=== PATIENT | female | born 1985 | race Caucasian/White ===

== ENCOUNTER 2017-01-14 18:38 | Emergency (ER) | payer BC ==
[2017-01-14 18:42] VITALS: BP 115/74
--- NOTE | 2017-01-14 20:54 | ED ---
Upper Extremity Pain - HPI Summary HPI Summary: 31 F presents with left foot pain for a week. pain is located on top of left foot. She states she has been wearing new shoes to the gym. The pain has moved from the the top of her foot to her 2nd and 3rd toe and up to her ankle. pain is greatest when pushes off while walking. she has not taken anything for the pain. - History of Current Complaint Chief Complaint: EDExtremityLower Stated Complaint: LEFT FOOT PAIN Time Seen by Provider: 01/14/17 19:36 Hx Last Menstrual Period: 04/05/15 - Allergies/Home Medications Allergies/Adverse Reactions: Allergies Allergy/AdvReac Type Severity Reaction Status Date / Time Latex Allergy Intermediate Blisters Verified 09/07/16 07:04 Penicillins [PCN] Allergy Mild Hives Verified 09/07/16 07:04 Ibuprofen AdvReac Mild See Comment Verified 09/07/16 07:04 PMH/Surg Hx/FS Hx/Imm Hx Endocrine/Hematology History: Denies: Hx Anticoagulant Therapy, Hx Diabetes, Hx Thyroid Disease Cardiovascular History: Denies: Hx Hypertension, Hx Pacemaker/ICD Respiratory History: Denies: Hx Asthma, Hx Chronic Obstructive Pulmonary Disease (COPD) GI History: Reports: Hx Crohn's Disease, Other GI Disorders - enlarged liver, crohns, GERD History: Denies: Hx Renal Disease Sensory History: Denies: Hx Hearing Aid Neurological History: Reports: Hx Migraine, Hx Seizures Denies: Hx Dementia Psychiatric History: Reports: Hx Panic Disorder Denies: Hx Substance Abuse - Surgical History Surgery Procedure, Year, and Place: TUBAL LIGATION. tonsilectomy. 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 Oral Surgery. crohns - Immunization History Date of Influenza Vaccine: mo Infectious Disease History: Denies: Hx Clostridium Difficile, Hx Hepatitis, Hx Human Immunodeficiency Virus (HIV), Hx of Known/Suspected MRSA, Hx Shingles, Hx Tuberculosis, Hx Known/ Suspected VRE, Hx Known/Suspected VRSA, History Other Infectious Disease, Traveled Outside the [place] in Last 30 Days - Family History Known Family History: Positive: None, Diabetes - grandmother Family History: FHx of blood clots - grandmother. FHx of breast CA - mother, grandmother - Social History Alcohol Use: Occasionally Substance Use Type: Reports: None Smoking Status (MU): Current Every Day Smoker Type: Cigarettes Amount Used/How Often: 2 cig. /day Length of Time of Smoking/Using Tobacco: 8 years Have You Smoked in the Last Year: Yes Review of Systems Negative: Fever Negative: Chest Pain Negative: Shortness Of Breath Positive: Myalgia - left foot pain All Other Systems Reviewed And Are Negative: Yes Physical Exam Triage Information Reviewed: Yes Vital Signs On Initial Exam: Initial Vitals Temp Pulse Resp BP Pulse Ox 97.3 F 86 20 115/74 100 01/14/17 18:40 01/14/17 18:40 01/14/17 18:40 01/14/17 18:40 01/14/17 18:40 Vital Signs Reviewed: Yes Appearance: Positive: Well-Appearing Skin: Positive: Warm, Dry Head/Face: Positive: Normal Head/Face Inspection Eyes: Positive: Normal, Conjunctiva Clear Respiratory/Lung Sounds: Positive: Clear to Auscultation, Breath Sounds Present Cardiovascular: Positive: Normal, RRR Musculoskeletal: Positive: Strength/ROM Intact - of left foot, Other - good pulses, capillary refill <2 secs, sensation grossly intact. pain noted along extensor digitorium tendons of foot Diagnostics - Vital Signs Vital Signs Temp Pulse Resp BP Pulse Ox 01/14/17 18:40 97.3 F 86 20 115/74 100 - Laboratory Lab Statement: Any lab studies that have been ordered have been reviewed, and results considered in the medical decision making process. - Radiology foot Xray Interpretation: No Acute Changes Radiology Interpretation Completed By: Radiologist Course/Dx - Course Course Of Treatment: 31F presents with gradual onset of left foot pain that is located on dorsum of foot from ankle due to 2nd and 3rd toe. worst with walking. on exam pain noted along extensor digitorium tendons of foot. xray normal. will treat as extensor tendonitis. told to use orthodotics that has and treat conservatively. patient understands and agrees with plan - Diagnoses Differential Diagnosis/HQI/PQRI: Positive: Fracture (Closed), Strain, Sprain Provider Diagnoses: Left foot pain Discharge - Discharge Plan Condition: Good Disposition: HOME Patient Education Materials: Tendinitis (ED) Referrals: Dalton Warner MD [Primary Care Provider] - Additional Instructions: Likely have extensor tendonitis Keep laces loose Rest, ice, elevate Can massage area Stretch calf muscles Take ibuprofen for pain every 6 hours Follow up with primary within 5 days Return to ED if develop any new or worsening symptoms
--- NOTE | 2017-01-14 21:08 | RAD ---
Indication: Left foot pain. 3 views left foot demonstrates no fracture. No other bone or joint abnormality is noted. IMPRESSION: No fracture of the left foot is noted.
== END 2017-01-14 21:30 | disposition home or self-care (01) ==
LOC: ED 18:38
DX: M79.672 Pain in left foot (principal); F17.210 Nicotine dependence, cigarettes, uncomplicated
CPT/HCPCS: 99281

== ENCOUNTER 2017-01-31 18:01 | Emergency (ER) | payer BC ==
[2017-01-31] MEDS ORDERED: Ondansetron INJ* 2 MG/ML VIAL IV ONE (23:13)
[2017-01-31] MEDS ORDERED: NS 0.9% 1000 ML* 1,000 ML IV ONE (23:13)
--- NOTE | 2017-01-31 23:44 | ED ---
Harsha Vargas Matthew, scribed for Dontrell Guerra MD on 01/31/17 at 2327 . Abdominal Pain/Female - HPI Summary HPI Summary: A 31 y/o female presents to the ED with RLQ abdominal pain since yesterday, which worsened at 17:00 today. The pain is described as sharp and radiates through to the back.. Associated symptoms include diarrhea - since yesterday, vomiting - 3x today; started yesterday, headache, and bilateral leg pain. Hx of crohn's disease and hasn't had issues lately. She hasn't eaten anything unusual. - History of Current Complaint Chief Complaint: EDAbdPain Stated Complaint: HEADACHE,BACK AND ABD PAIN,WEAKNESS Time Seen by Provider: 01/31/17 23:08 Hx Obtained From: Patient Hx Last Menstrual Period: 04/05/15 ?: No Onset/Duration: Gradual Onset, Lasting Days, Still Present Timing: Constant Severity Initially: Moderate Severity Currently: Moderate Pain Intensity: 8 Pain Scale Used: 0-10 Numeric Location: Discrete At: RLQ Radiates: Yes Radiates to: Back Character: Sharp Associated Signs and Symptoms: Positive: Back Pain, Nausea, Vomiting, Diarrhea, Other: - bilateral leg pain Allergies/Adverse Reactions: Allergies Allergy/AdvReac Type Severity Reaction Status Date / Time Latex Allergy Intermediate Blisters Verified 09/07/16 07:04 Penicillins [PCN] Allergy Mild Hives Verified 09/07/16 07:04 Ibuprofen AdvReac Mild See Comment Verified 09/07/16 07:04 PMH/Surg Hx/FS Hx/Imm Hx Endocrine/Hematology History: Denies: Hx Anticoagulant Therapy, Hx Diabetes, Hx Thyroid Disease Cardiovascular History: Denies: Hx Hypertension, Hx Pacemaker/ICD Respiratory History: Denies: Hx Asthma, Hx Chronic Obstructive Pulmonary Disease (COPD) GI History: Reports: Hx Crohn's Disease, Other GI Disorders - enlarged liver, crohns, GERD History: Denies: Hx Renal Disease Sensory History: Denies: Hx Hearing Aid Neurological History: Reports: Hx Migraine, Hx Seizures Denies: Hx Dementia Psychiatric History: Reports: Hx Panic Disorder Denies: Hx Substance Abuse - Surgical History Surgery Procedure, Year, and Place: TUBAL LIGATION. tonsilectomy. 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 Oral Surgery. crohns - Immunization History Date of Influenza Vaccine: mo Infectious Disease History: No Infectious Disease History: Denies: Hx Clostridium Difficile, Hx Hepatitis, Hx Human Immunodeficiency Virus (HIV), Hx of Known/Suspected MRSA, Hx Shingles, Hx Tuberculosis, Hx Known/ Suspected VRE, Hx Known/Suspected VRSA, History Other Infectious Disease, Traveled Outside the [place] in Last 30 Days - Family History Known Family History: Positive: Diabetes - grandmother Family History: FHx of blood clots - grandmother. FHx of breast CA - mother, grandmother - Social History Alcohol Use: Occasionally Substance Use Type: Reports: None Smoking Status (MU): Current Every Day Smoker Type: Cigarettes Amount Used/How Often: 2 cig. /day Length of Time of Smoking/Using Tobacco: 8 years Have You Smoked in the Last Year: Yes Review of Systems Constitutional: Negative Eyes: Negative ENT: Negative Cardiovascular: Negative Respiratory: Negative Positive: Abdominal Pain - RLQ, Vomiting, Diarrhea, Nausea Genitourinary: Negative Positive: Myalgia - back pain, bilateral leg pain Skin: Negative Neurological: Negative Psychological: Normal All Other Systems Reviewed And Are Negative: Yes Physical Exam Triage Information Reviewed: Yes Vital Signs On Initial Exam: Initial Vitals Temp Pulse Resp BP Pulse Ox 98.5 F 97 18 106/64 98 01/31/17 18:06 01/31/17 18:06 01/31/17 18:06 01/31/17 18:06 01/31/17 18:06 Vital Signs Reviewed: Yes Appearance: Positive: Well-Appearing, No Pain Distress Skin: Positive: Warm Head/Face: Positive: Normal Head/Face Inspection Eyes: Positive: DELORIS ENT: Positive: Hearing grossly normal Neck: Positive: Supple Respiratory/Lung Sounds: Positive: Clear to Auscultation, Breath Sounds Present Cardiovascular: Positive: RRR Abdomen Description: Positive: Nontender, No Organomegaly, Soft Bowel Sounds: Positive: Present Musculoskeletal: Positive: Strength/ROM Intact Neurological: Positive: Sensory/Motor Intact, Alert, Oriented to Person Place, Time Psychiatric: Positive: Affect/Mood Appropriate Diagnostics - Vital Signs Vital Signs Temp Pulse Resp BP Pulse Ox 01/31/17 20:06 99.1 F 90 16 107/66 99 01/31/17 18:06 98.5 F 97 18 106/64 98 - Laboratory Result Diagrams: 01/31/17 23:50 01/31/17 23:50 Lab Statement: Any lab studies that have been ordered have been reviewed, and results considered in the medical decision making process. Re-Evaluation - Re-Evaluation First Eval Change: Improved Abdominal Pain Fem Course/Dx - Course Course Of Treatment: A 31 y/o female presents to the ED with RLQ abdominal pain since yesterday, which worsened at 17:00 today. The pain is described as sharp and radiates through to the back.. Associated symptoms include diarrhea - since yesterday, vomiting - 3x today; started yesterday, headache, and bilateral leg pain. Labs were reviewed and shows WBC of 11.9. In the ED course, the patient was given IV fluids and Zofran. She improved while in the ED and will be discharged home with PCP follow-up. - Diagnoses Provider Diagnoses: Vomiting Discharge - Discharge Plan Condition: Stable Disposition: HOME Patient Education Materials: Acute Nausea and Vomiting (ED) Referrals: Dalton Warner MD [Primary Care Provider] - 3 Days Additional Instructions: Please follow-up with your primary care physician in 3 days. Please eat a bland diet. The documentation as recorded by the Harsha ni Matthew accurately reflects the service I personally performed and the decisions made by me, Dontrell Guerra MD.
[2017-02-01 00:09] LABS: Hematocrit 42 % (35-47); Mean Corpuscular HGB Conc 34 g/dl (31-36); Mean Corpuscular Hemoglobin 29 pg (27-31); Mean Corpuscular Volume 87 fL (80-97); Mean Platelet Volume 8 um3 (7.4-10.4); Red Blood Count 4.79 10^6/ul (4.0-5.4); Red Cell Distribution Width 13 % (10.5-15); White Blood Count 11.9 10^3/ul (3.5-10.8)
[2017-02-01 00:24] LABS: Albumin 4.3 g/dL (3.2-5.2); BUN/Creatinine Ratio 18.1 (8-20); C Reactive Protein 3.08 mg/L (< 5.00); Calcium 9.3 mg/dL (8.6-10.3); EGFR African American 123.2 (>60); EGFR Non-African American 95.8 (>60); Potassium 3.5 mmol/L (3.5-5.0); Total Bilirubin 0.8 mg/dL (0.2-1.0); Total Protein 7.3 g/dL (6.4-8.9)
[2017-02-01 03:09] VITALS: BP 96/67
== END 2017-02-01 03:10 | disposition home or self-care (01) ==
LOC: ED 18:01
DX: R11.10 Vomiting, unspecified (principal); Z88.0 Allergy status to penicillin; F17.210 Nicotine dependence, cigarettes, uncomplicated
CPT/HCPCS: 36415; 80053; 83605; 83690; 83735; 85025; 86140; 96360; 96374; 99283; J2405

== ENCOUNTER 2017-06-24 21:08 | Emergency (ER) | payer BC, OTHER ==
[2017-06-24 21:18] VITALS: BP 114/69
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
== END 2017-06-24 21:45 | disposition home or self-care (01) ==
LOC: UCEAST 21:08
DX: S16.1XXA Strain of muscle, fascia and tendon at neck level, initial encounter (principal); V49.60XA Unspecified car occupant injured in collision with unspecified motor vehicles in traffic accident, initial encounter; Y93.89 Activity, other specified; Y92.410 Unspecified street and highway as the place of occurrence of the external cause; M25.519 Pain in unspecified shoulder; M62.830 Muscle spasm of back; Z88.0 Allergy status to penicillin; Z88.6 Allergy status to analgesic agent; Z91.040 Latex allergy status; F17.210 Nicotine dependence, cigarettes, uncomplicated
CPT/HCPCS: 99213; G0463

== ENCOUNTER 2017-09-01 17:22 | Emergency (ER) | payer BC, OTHER ==
[2017-09-01] MEDS ORDERED: oxyCODONE/Acetamin 5/325 MG* TAB PO ONE (17:53)
--- NOTE | 2017-09-01 18:27 | ED ---
Upper Extremity Pain - HPI Summary HPI Summary: 31F presents with left wrist pain since last night. She twisted her wrist over her head. She states she felt a pop. She has pain that is on the radial aspect of her left wrist. She has had issues with this wrist before but pain has never been this intense. No previous injury to the area. She admits to some tingling in her thumb and index finger. She states pain is 10/10. She has been taking tyenlol for her pain. She is right handed. 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 She has PMH of crohns. - History of Current Complaint Chief Complaint: EDExtremityUpper Stated Complaint: LT WRIST INJURY Time Seen by Provider: 09/01/17 17:33 Hx Last Menstrual Period: 06/19/17 - Allergies/Home Medications Allergies/Adverse Reactions: Allergies Allergy/AdvReac Type Severity Reaction Status Date / Time Latex Allergy Intermediate Blisters Verified 06/24/17 21:18 Penicillins [PCN] Allergy Mild Hives Verified 06/24/17 21:18 Ibuprofen AdvReac Mild See Comment Verified 06/24/17 21:18 PMH/Surg Hx/FS Hx/Imm Hx Endocrine/Hematology History: Denies: Hx Anticoagulant Therapy, Hx Diabetes, Hx Thyroid Disease Cardiovascular History: Denies: Hx Hypertension, Hx Pacemaker/ICD Respiratory History: Denies: Hx Asthma, Hx Chronic Obstructive Pulmonary Disease (COPD) GI History: Reports: Hx Crohn's Disease, Other GI Disorders - enlarged liver, crohns, GERD History: Denies: Hx Renal Disease Sensory History: Denies: Hx Hearing Aid Neurological History: Reports: Hx Migraine, Hx Seizures Denies: Hx Dementia Psychiatric History: Reports: Hx Panic Disorder Denies: Hx Substance Abuse - Surgical History Surgery Procedure, Year, and Place: TUBAL LIGATION. tonsilectomy. 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 Oral Surgery. crohns - Immunization History Date of Influenza Vaccine: mo Infectious Disease History: No Infectious Disease History: Denies: Hx Clostridium Difficile, Hx Hepatitis, Hx Human Immunodeficiency Virus (HIV), Hx of Known/Suspected MRSA, Hx Shingles, Hx Tuberculosis, Hx Known/ Suspected VRE, Hx Known/Suspected VRSA, History Other Infectious Disease, Traveled Outside the [place] in Last 30 Days - Family History Known Family History: Positive: None, Diabetes - grandmother Family History: FHx of blood clots - grandmother. FHx of breast CA - mother, grandmother - Social History Alcohol Use: Rare Alcohol Amount: holidays only Substance Use Type: Reports: None Smoking Status (MU): Light Every Day Tobacco Smoker Type: Cigarettes Amount Used/How Often: 2 cig. /day Length of Time of Smoking/Using Tobacco: 8 years Have You Smoked in the Last Year: Yes Review of Systems Negative: Fever Negative: Chest Pain Negative: Shortness Of Breath Positive: Myalgia - left wrist pain All Other Systems Reviewed And Are Negative: Yes Physical Exam Triage Information Reviewed: Yes Vital Signs On Initial Exam: Initial Vitals Temp Pulse Resp BP Pulse Ox 98 F 90 18 123/85 97 09/01/17 17:30 09/01/17 17:30 09/01/17 17:30 09/01/17 17:30 09/01/17 17:30 Vital Signs Reviewed: Yes Appearance: Positive: Well-Appearing Skin: Positive: Warm, Dry Head/Face: Positive: Normal Head/Face Inspection Eyes: Positive: Normal, Conjunctiva Clear Respiratory/Lung Sounds: Positive: Clear to Auscultation, Breath Sounds Present Cardiovascular: Positive: Normal, RRR Musculoskeletal: Positive: Strength/ROM Intact - fingers with pain, Limited @ - left wrist, Other - tender over radial aspect of wrist, good pulses, capillary refill<2 secs, no deformity, neg snuff box tenderness, will not perform frankstein test due to pain. Negative: Edema Left Neurological: Positive: Normal Psychiatric: Positive: Normal Diagnostics - Vital Signs Vital Signs Temp Pulse Resp BP Pulse Ox 09/01/17 18:04 18 09/01/17 17:30 98 F 90 18 123/85 97 - Laboratory Lab Statement: Any lab studies that have been ordered have been reviewed, and results considered in the medical decision making process. - Radiology wrist Xray Interpretation: No Acute Changes - IMPRESSION: Normal radiograph of the left wrist. If the patient's symptoms persist, follow-up imaging is recommended. Radiology Interpretation Completed By: Radiologist Course/Dx - Course Course Of Treatment: 31F presents with left wrist pain since last night. She twisted her wrist over her head. She states she felt a pop. She has pain that is on the radial aspect of her left wrist. She has had issues with this wrist before but pain has never been this intense. No previous injury to the area. She admits to some tingling in her thumb and index finger. She states pain is 10/10. She has been taking tyenlol for her pain. She is right handed. on exam has tenderness over radial aspect of dorsum of wrist. has ROM of finger. neg snuff box tenderness. neurovascular intact. xray read as normal. will give thumb spica splint for splint. could be de quervain. will give ortho referral if no improvement with 2 weeks of conservative therapy. patient understand and agrees with plan. - Diagnoses Differential Diagnosis/HQI/PQRI: Positive: Fracture (Closed), Strain, Sprain Provider Diagnoses: Left wrist injury Discharge - Discharge Plan Condition: Good Disposition: HOME Patient Education Materials: Wrist Injury (ED) Referrals: Dalton Warner MD [Primary Care Provider] - Cam Cummings MD [Medical Doctor] - Additional Instructions: Take Tylenol every 6 hours as needed for pain Apply ice, rest, elevate keep in splint Follow up with primary care physician or ortho if no improvement Return to ED if develop any new or worsening symptoms
--- NOTE | 2017-09-01 18:38 | RAD ---
INDICATION: Pain and swelling at the left wrist COMPARISON: None. TECHNIQUE: 3 views left wrist. REPORT: The visualized bones are properly aligned and well corticated. The joint spaces are normal.There is no fracture, dislocation or other focal osseous abnormality. IMPRESSION: Normal radiograph of the left wrist. If the patient's symptoms persist, follow-up imaging is recommended.
[2017-09-01 19:20] VITALS: BP 106/65
== END 2017-09-01 19:16 | disposition home or self-care (01) ==
LOC: ED 17:22
DX: S69.92XA Unspecified injury of left wrist, hand and finger(s), initial encounter (principal); M25.532 Pain in left wrist; F17.210 Nicotine dependence, cigarettes, uncomplicated; X50.9XXA Other and unspecified overexertion or strenuous movements or postures, initial encounter; Y93.9 Activity, unspecified; Y92.9 Unspecified place or not applicable
CPT/HCPCS: 99282; A9270-GY

== ENCOUNTER 2017-10-26 17:58 | Emergency (ER) | payer BC ==
[2017-10-26] MEDS ORDERED: NS 0.9% 1000 ML*IV.FLUID IV ONE (19:41)
[2017-10-26] MEDS ORDERED: Levofloxacin 750 MG IVPREMIX(* 750 MG/150 ML BAG IVPB ONE (19:43)
[2017-10-26] MEDS ORDERED: HYDROmorphone INJ* 2 MG/ML CARPUJECT SYRINGE IV SLOW PU ONE (19:44)
[2017-10-26] MEDS ORDERED: Metoclopramide IV* 5 MG/ML 2 ML VIAL IV SLOW PU ONE (19:44)
[2017-10-26] MEDS ORDERED: metroNIDAZOLE IV 500 MG/100ML* 500 MG/100 ML BAG IVPB ONE (19:44)
[2017-10-26 20:48] LABS: ABS Basophils 0.1 10^3/ul (0-0.2); ABS Eosinophils 0.2 10^3/ul (0-0.6); ABS Lymphocytes 3.9 10^3/ul (1.0-4.8); ABS Monocytes 0.8 10^3/ul (0-0.8); ABS Neutrophils 9.1 10^3/ul (1.5-7.7); ABS Nucleated RBC 0 10^3/ul; Eosinophil % 1.2 % (0-6); Hematocrit 40 % (35-47); Hemoglobin 13.3 g/dl (12.0-16.0); Lymphocyte % 27.7 % (25-47); Mean Corpuscular HGB Conc 34 g/dl (31-36); Mean Corpuscular Hemoglobin 30 pg (27-31); Mean Corpuscular Volume 88 fL (80-97); Mean Platelet Volume 8 um3 (7.4-10.4); Nucleated Red Blood Cells % 0.1; Platelet Count 360 10^3/ul (150-450); Red Blood Count 4.48 10^6/ul (4.0-5.4); Red Cell Distribution Width 13 % (10.5-15); White Blood Count 14.1 10^3/ul (3.5-10.8)
[2017-10-26 20:59] LABS: EGFR Non-African American 105.2 (>60)
[2017-10-26 21:03] LABS: INR 0.95 (0.77-1.02)
[2017-10-26] MEDS ORDERED: Iohexol 300* (CONTRAST) 10 ML SDV IV ONE (21:31)
[2017-10-26 21:39] LABS: Urine Appearance Cloudy; Urine Blood Negative (Negative); Urine Color Yellow; Urine Ketones Negative (Negative); Urine Protein Negative (Negative); Urine Specific Gravity 1.021 (1.010-1.030); Urine Urobilinogen Negative (Negative)
--- NOTE | 2017-10-27 00:12 | ED ---
Placido Vargas Nikita, scribed for Blayne Madrigal MD on 10/26/17 at 1939 . Complex/Multi-Sys Presentation - HPI Summary HPI Summary: This patient is a 32 year old F BIBA to ED with a chief complaint of dizziness and confusion since 2 days ago. The CC is described as sharp and has worsened today. The patient rates the pain 8/10 in severity. Symptoms aggravated by nothing. Symptoms alleviated by nothing. Patient reports abdominal pain ( radiating to the back), N/V/D (x1 week), fever and chills (x3 days), and bloody red stool (couple of months). Pt was given Zofran [employer]. Pt believes it is a flare up of Crohns (first time in 3 years). - History Of Current Complaint Chief Complaint: EDAbdPain Time Seen by Provider: 10/26/17 19:28 Hx Obtained From: Patient Onset/Duration: Sudden Onset, Lasting Days, Lasting Weeks, Still Present, Worse Since - today Timing: Constant, Days, Weeks Severity Currently: Severe Severity Initially: Severe Location: Radiates To: - abdominal pain radiates to the back Character: Sharp Aggravating Factor(s): nothing Alleviating Factor(s): nothing Associated Signs And Symptoms: Positive: Other - Patient reports abdominal pain (radiating to the back), N/V/D (x1 week), fever and chills (x3 days), bloody red stool (couple of months), and dizziness and confusion (x2 days ago). - Allergies/Home Medications Allergies/Adverse Reactions: Allergies Allergy/AdvReac Type Severity Reaction Status Date / Time Latex Allergy Intermediate Blisters Verified 10/26/17 18:51 Penicillins [PCN] Allergy Mild Hives Verified 10/26/17 18:51 Ibuprofen AdvReac Mild See Comment Verified 10/26/17 18:51 Home Medications: Home Medications FLUoxetine CAP* [Prozac CAP*] 20 mg PO BID 10/26/17 [History Confirmed 10/26/17] PMH/Surg Hx/FS Hx/Imm Hx Endocrine/Hematology History: Denies: Hx Anticoagulant Therapy, Hx Diabetes, Hx Thyroid Disease Cardiovascular History: Denies: Hx Hypertension, Hx Pacemaker/ICD Respiratory History: Denies: Hx Asthma, Hx Chronic Obstructive Pulmonary Disease (COPD) GI History: Reports: Hx Crohn's Disease, Other GI Disorders - enlarged liver, crohns, GERD History: Denies: Hx Renal Disease Sensory History: Denies: Hx Hearing Aid Neurological History: Reports: Hx Migraine, Hx Seizures Denies: Hx Dementia Psychiatric History: Reports: Hx Panic Disorder Denies: Hx Substance Abuse - Surgical History Surgery Procedure, Year, and Place: TUBAL LIGATION. tonsilectomy. 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 Oral Surgery. crohns - Immunization History Date of Influenza Vaccine: mo Infectious Disease History: No Infectious Disease History: Denies: Hx Clostridium Difficile, Hx Hepatitis, Hx Human Immunodeficiency Virus (HIV), Hx of Known/Suspected MRSA, Hx Shingles, Hx Tuberculosis, Hx Known/ Suspected VRE, Hx Known/Suspected VRSA, History Other Infectious Disease, Traveled Outside the [place] in Last 30 Days - Family History Known Family History: Positive: Diabetes - grandmother Family History: FHx of blood clots - grandmother. FHx of breast CA - mother, grandmother - Social History Alcohol Use: Rare Alcohol Amount: holidays only and her Birthday on [birth year] Substance Use Type: Reports: None Smoking Status (MU): Light Every Day Tobacco Smoker Type: Cigarettes Amount Used/How Often: 2 cig. /day Length of Time of Smoking/Using Tobacco: 8 years Have You Smoked in the Last Year: Yes Review of Systems Positive: Fever, Chills Positive: Abdominal Pain - radiating to the back, Vomiting, Diarrhea, Nausea, Other - bloody red stool Neurological: Other - dizziness and confusion All Other Systems Reviewed And Are Negative: Yes Physical Exam - Summary Physical Exam Summary: VITAL SIGNS: Reviewed. GENERAL: ~Patient is a well-developed and nourished FEMALE who is lying comfortable in the stretcher. Patient is not in any acute respiratory distress. HEAD AND FACE: No signs of trauma. No ecchymosis, hematomas or skull depressions. No sinus tenderness. EYES: PERRLA, EOMI x 2, No injected conjunctiva, no nystagmus. EARS: Hearing grossly intact. Ear canals and tympanic membranes are within normal limits. MOUTH: Oropharynx within normal limits. NECK: Supple, trachea is midline, no adenopathy, no JVD, no carotid bruit, no c- spine tenderness, neck with full ROM. CHEST: Symmetric, no tenderness at palpation LUNGS: Clear to auscultation bilaterally. No wheezing or crackles. CVS: Regular rate and rhythm, S1 and S2 present, no murmurs or gallops appreciated. ABDOMEN: Soft. Diffuse abdominal tenderness, more over the LLQ. No signs of distention. No rebound no guarding, and no masses palpated. Bowel sounds are normal. EXTREMITIES: FROM in all major joints, no edema, no cyanosis or clubbing. NEURO: Alert and oriented x 3. No acute neurological deficits. Speech is normal and follows commands. SKIN: Dry and warm Triage Information Reviewed: Yes Vital Signs On Initial Exam: Initial Vitals Temp Pulse Resp BP Pulse Ox 98.7 F 77 16 103/64 99 10/26/17 18:34 10/26/17 18:34 10/26/17 18:34 10/26/17 18:34 10/26/17 18:34 Vital Signs Reviewed: Yes Diagnostics - Vital Signs Vital Signs Temp Pulse Resp BP Pulse Ox 10/26/17 18:41 76 13 97 10/26/17 18:39 91/61 10/26/17 18:34 98.7 F 77 16 103/64 99 - Laboratory Result Diagrams: 10/26/17 20:25 10/26/17 20:25 Lab Statement: Any lab studies that have been ordered have been reviewed, and results considered in the medical decision making process. - CT abd/pel CT Interpretation Completed By: Radiologist - No acute findings. ED physician has reviewed this radiology report. Re-Evaluation - Re-Evaluation First Eval Re-Evaluation Time: 23:54 Comment: Discussed with pt about results. Discussed with pt about discharge plan. Complex Multi-Symp Course/Dx Assessment/Plan: This patient is a 32 year old F BIBA to ED with a chief complaint of dizziness and confusion since 2 days ago. The CC is described as sharp and has worsened today. The patient rates the pain 8/10 in severity. Patient reports abdominal pain (radiating to the back), N/V/D (x1 week), fever and chills (x3 days), and bloody red stool (couple of months). CT abd/pel reveals no acute findings. Pt will be discharged. Pt is agreeable with this plan. - Diagnoses Differential Diagnoses/HQI/PQRI: Other - abdominal pain Provider Diagnoses: Abdominal pain Discharge - Discharge Plan Condition: Stable Disposition: HOME Patient Education Materials: Abdominal Pain (ED) Referrals: Dalton Warner MD [Primary Care Provider] - (Follow up with your PCP in 1-2 days.) Additional Instructions: RETURN TO EMERGENCY DEPARTMENT FOR ANY NEW OR WORSENING SYMPTOMS. The documentation as recorded by the Placido ni Nikita accurately reflects the service I personally performed and the decisions made by me, Blayne Madrigal MD.
[2017-10-27 00:18] VITALS: BP 94/64
--- NOTE | 2017-10-27 07:46 | RAD ---
CLINICAL HISTORY: Abdominal pain, history of Crohn's disease COMPARISON: May 23, 2015 TECHNIQUE: Multiple contiguous axial CT scans were obtained of the abdomen and pelvis after the administration of intravenous contrast. Coronal and sagittal multiplanar reformations are submitted for review. Oral contrast was administered. Delayed images were obtained through the abdomen and pelvis. FINDINGS: LUNG BASES: The lung bases are clear. LIVER: The liver is normal in shape, size, contour, and attenuation. BILE DUCTS: There is no intrahepatic or extrahepatic biliary dilatation. GALLBLADDER: The gallbladder is normal, without pericholecystic inflammatory change. PANCREAS: The pancreas is normal, without mass or ductal dilatation. SPLEEN: Normal in size and appearance. UPPER GI TRACT: Evaluation of the gastrointestinal tract is limited by incomplete gastric distention. The upper GI tract is unremarkable. SMALL BOWEL AND MESENTERY: The small bowel is normal in contour, course, and caliber. There is no obstruction or dilatation. COLON: There is mild mucosal thickening of the descending colon.. The appendix is not clearly visualized. There is no appreciable inflammatory change within the right lower quadrant. ADRENALS: Normal bilaterally. KIDNEYS: The kidneys are normal in shape, size, contour, and axis. There is no hydronephrosis or nephrolithiasis. BLADDER: The bladder is smooth in contour. PELVIC ORGANS: The uterus and adnexa are grossly normal for technique. AORTA: The aorta is normal. IVC: Unremarkable LYMPH NODES: There is no lymphadenopathy by size criteria. ABDOMINAL WALL: There is a small fat-containing umbilical hernia BONES AND SOFT TISSUES: There are mild diffuse degenerative changes. OTHER: None IMPRESSION: MILD MUCOSAL THICKENING OF THE DESCENDING COLON. THE DIFFERENTIAL INCLUDES COLITIS GIVEN THE HISTORY OF INFLAMMATORY BOWEL DISEASE; HOWEVER, THIS MAY BE AN ARTIFACT OF INCOMPLETE DISTENTION. OTHERWISE UNREMARKABLE CT OF THE ABDOMEN AND PELVIS.
== END 2017-10-27 00:18 | disposition home or self-care (01) ==
LOC: ED 17:58
DX: R10.9 Unspecified abdominal pain (principal); R42 Dizziness and giddiness; R41.0 Disorientation, unspecified; F17.210 Nicotine dependence, cigarettes, uncomplicated
CPT/HCPCS: 36415; 74177; 80053; 81003; 83605; 84484; 84702; 85025; 85610; 85730; 86140; 87040; 96374; 99283; J1170; J2765; J3490; Q9967

== ENCOUNTER 2018-04-27 18:11 | Emergency (ER) | payer BC ==
[2018-04-27] MEDS ORDERED: Morphine ORAL.SOLN 10 mg* 2 MG/ML UDC 5 ml PO ONE (19:48)
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
[2018-04-27 22:08] VITALS: BP 106/68
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
== END 2018-04-27 22:08 | disposition home or self-care (01) ==
LOC: ED 18:11
DX: S16.1XXA Strain of muscle, fascia and tendon at neck level, initial encounter (principal); W20.8XXA Other cause of strike by thrown, projected or falling object, initial encounter; Y93.89 Activity, other specified; Y92.410 Unspecified street and highway as the place of occurrence of the external cause; M25.559 Pain in unspecified hip; Z88.0 Allergy status to penicillin; Z88.6 Allergy status to analgesic agent; Z91.040 Latex allergy status; Z83.3 Family history of diabetes mellitus; Z83.2 Family history of diseases of the blood and blood-forming organs and certain disorders involving the immune mechanism; Z80.3 Family history of malignant neoplasm of breast; Z87.891 Personal history of nicotine dependence
CPT/HCPCS: 72125; 99282; A9270-GY

== ENCOUNTER 2018-11-23 09:51 | Emergency (ER) | payer BC | END 2018-11-23 11:00 | disposition left against medical advice (07) | LOC: UCEAST 09:51 | DX: Z53.21 Procedure and treatment not carried out due to patient leaving prior to being seen by health care provider (principal) ==

== ENCOUNTER → 2018-11-24 09:08 | Emergency (ER) | payer BC ==
[~2018-11-24 09:08] MED LIST: Butalb/Acetamin/Caff TAB* 1 TAB PO ONE; Iohexol 300* (CONTRAST) 10 ML SDV IV ONE; NS 0.9% 1000 ML** 1,000 ML IV ONE; Ondansetron INJ* 2 MG/ML VIAL IV ONE
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
[2018-11-24] MEDS: Ketorolac INJ* 30 MG/ML 1 ML VIAL IV PUSH ONE ×2 (10:21→11:49)
[2018-11-24 11:07] LABS: ABS Basophils 0.1 10^3/ul (0-0.2); ABS Eosinophils 0.2 10^3/ul (0-0.6); ABS Monocytes 0.6 10^3/ul (0-0.8); ABS Neutrophils 6.1 10^3/ul (1.5-7.7); ABS Nucleated RBC 0 10^3/ul; Eosinophil % 1.5 %; Hematocrit 45 % (35-47); Hemoglobin 15.6 g/dl (12.0-16.0); Lymphocyte % 30.5 %; Mean Corpuscular HGB Conc 34 g/dl (31-36); Mean Corpuscular Hemoglobin 31 pg (27-31); Mean Corpuscular Volume 91 fL (80-97); Mean Platelet Volume 8.4 fL (7.4-10.4); Nucleated Red Blood Cells % 0; Platelet Count 397 10^3/ul (150-450); Red Blood Count 4.97 10^6/ul (4.00-5.40); Red Cell Distribution Width 14 % (10.5-15)
[2018-11-24 11:25] LABS: ALT 12 U/L (7-52); AST 16 U/L (13-39); Albumin 4.4 g/dL (3.2-5.2); Albumin/Globulin Ratio 1.4 (1-3); Alkaline Phosphatase 43 U/L (34-104); Anion Gap 7 mmol/L (2-11); BUN/Creatinine Ratio 13.9 (8-20); Blood Urea Nitrogen 10 mg/dL (6-24); C Reactive Protein 3.28 mg/L (<8.01); CO2 Carbon Dioxide 23 mmol/L (22-32); Calcium 9.2 mg/dL (8.6-10.3); Chloride 108 mmol/L (101-111); EGFR African American 114.3 (>60); EGFR Non-African American 94.5 (>60); Globulin 3.2 g/dL (2-4); Glucose 83 mg/dL (70-100); Magnesium 2.2 mg/dL (1.9-2.7); Potassium 3.8 mmol/L (3.5-5.0); Sodium 138 mmol/L (135-145); Total Protein 7.6 g/dL (6.4-8.9)
[2018-11-24 11:30] LABS: Urine Appearance Clear; Urine Bilirubin Negative (Negative); Urine Blood Negative (Negative); Urine Color Straw; Urine Glucose Negative (Negative); Urine Ketones Negative (Negative); Urine Nitrite Negative (Negative); Urine Protein Negative (Negative); Urine Specific Gravity 1.005 (1.010-1.030); Urine Urobilinogen Negative (Negative)
[2018-11-24 11:30] LABS: HCG Pregnancy < 0.60 mIU/mL
[2018-11-24 12:08] VITALS: BP 109/74
== END | disposition home or self-care (01) ==
LOC: ED 09:08
DX: R51 Headache (principal); F17.210 Nicotine dependence, cigarettes, uncomplicated; K50.90 Crohn's disease, unspecified, without complications
CPT/HCPCS: 36415; 70450; 74177; 80053; 81003; 83605; 83690; 83735; 84702; 85025; 86140; 96361; 96374; 96375; 99282; A9270-GY; J1885; J2405; Q9967

== ENCOUNTER 2019-05-02 07:12 | Emergency (ER) | payer BC, OTHER ==
--- OUTSIDE RECORDS SUMMARY | 2019-05-02 07:24 | XMS REPORT | Continuity of Care Document ---
:1985 External Reference #:[id number] Author Name Selin Nascimento Care Team Providers Name Role Phone Dalton Warner MD Primary Care Physician Unavailable Payers Date Identification Numbers Payment Provider Subscriber Policy Number: [id number] BECKI Colbert Ruthie Cruz PayID: [id number] [address] [address] [place] [address] Effective: 2018 Policy Number: [id number] Leana Ruthie Cruz Onset: 2018 PayID: [id number] [address] [place] [address] Problems Active Problems Provider Date Gastroesophageal reflux disease Roldan Murrieta M.D. Onset: 08/31/2011 Asthma without status asthmaticus Roldan Murrieta M.D. Onset: 08/31/2011 Atypical depressive disorder Roldan Murrieta M.D. Onset: 08/31/2011 Tobacco user Roldan Murrieta M.D. Onset: 08/31/2011 Seizure Darrell Flannery M.D. Onset: 04/25/2015 Depressive disorder Darrell Flannery M.D. Onset: 04/25/2015 Anxiety Darrell Flannery M.D. Onset: 04/25/2015 Anemia Darrell Flannery M.D. Onset: 04/25/2015 Syncope and collapse Walt Rodney M.D. Onset: 04/09/2019 Refractory migraine without aura Walt Rodney M.D. Onset: 04/09/2019 Migraine without aura, not refractory Walt Rodney M.D. Onset: 2018 Cervical spondylosis without myelopathy Pierre Jensen M.D. Onset: 2014 Neck pain Darrell Flannery M.D. Onset: 04/25/2015 Family History Date Family Member(s) Observation Comments General Congestive Heart Failure (CHF) General Uterine Cancer General Breast Cancer General Diabetes General Stroke General Hypertension General Heart Disease Social History Type Date Description Comments Sex Unknown Lives With Spouse Occupation Currently Working Occupation works at a [employer] Tobacco Use Start: Unknown Currently smokes 1-5 Cigarettes Daily ETOH Use Denies alcohol use Tobacco Use Start: Unknown Patient is a current smoker, smokes every day Recreational Drug Use Denies Drug Use Tobacco Use Start: Unknown Light tobacco smoker (10 or fewer cigarettes/day) Smoking Status Reviewed: 04/09/19 Light tobacco smoker (10 or fewer cigarettes/day) Allergies, Adverse Reactions, Alerts Active Allergies Reaction Severity Comments Date Penicillin hives 06/24/2010 Latex 06/24/2010 Ibuprofen 12/21/2010 Reglan uncontrollable muscle spasms 10/19/2018 Medications Active Medications SIG Qnty Indications Ordering Provider Date Topiramate Take 1 in am and 90tabs G43.019 Walt Rodney, 04/09/2019 50mg Tablets 2 in pm M.D. Combivent Inhaler 2puffs qid prn 1units 493.90 Roldan Murrieta, 2010 M.D. Prozac one twice daily Unknown 10mg Capsules Ambien one by mouth at Unknown 5mg Tablets bedtime as needed for sleep Nizatidine take one capsule Unknown 150mg by mouth twice a Capsules day Triamcinolone apply thin film Unknown Acetonide twice daily 0.1% Cream Ondansetron dissolve one Unknown 4mg Tablets tablet orally Dispers every 8 hours as needed for nausea. History Medications Topiramate 1 by mouth 180tabs G43.019 Walt Rodney, 11/29/2018 - 50mg twice a day M.D. 04/09/2019 Tablets Topiramate 1 by mouth 60tabs M54.2 Walt Rodney, 10/19/2018 - 25mg twice a day M.D. 11/29/2018 Tablets Neurontin 1 by mouth 30caps Darrell Flannery, 04/25/2015 - 300mg every night at M.D. 10/16/2018 Capsules bedtime Ambien as needed 30tabs 780.52 Nancy Kaur, 02/22/2012 - 5mg Tablets before sleep M.D. 06/02/2015 Lortab bid prn 60tabs 719.45 Roldan Glenny, 01/19/2011 - 5-500mg M.D. 04/20/2011 Tablets Lortab 1 tab tid prn 45tabs Donald RileyDee Maye, 12/22/2010 - 5-500mg M.D. 01/19/2011 Tablets Phenergan Tab bid prn 30units 535.40 Roldanmonalisa Murrieta, 10/19/2010 - 25mg M.D. 01/19/2011 Sertraline HCL 2 tabs po daily 60tabs 924.01 Roldan Murrieta, 09/15/2010 - M.D. 06/02/2015 100mg Tablets Zoloft 1/2 tab x2 50tabs 924.01 Roldan Murrieta, 09/15/2010 - 50mg Tablets days,then 1 tab M.D. 09/15/2010 daily,2 tab daily starting 8th day Tramadol 1 po tid 45tabs 924.01 Roldan Murrieta, 09/15/2010 - Hydrochloride/Aceta M.D. 01/19/2011 minophen 37.5-325mg Tablets Omeprazole 1 po qd in am 30caps 530.81 Roldan Murrieta, 08/19/2010 - 20mg in empty M.D. 06/02/[address] stomach Zoloft 1 1/2 tab daily 45tabs 296.82 Roldan Murrieta, 07/08/2010 - 100mg M.D. 09/15/2010 Tablets Ambien 1/2 -1 tab po 30tabs 780.52 Roladn Murrieta, 07/08/2010 - 10mg Tablets qhs prn M.D. 06/02/2015 Zoloft 1/2 tab daily x 30tabs 296.82 Roldan Murrieta, 06/24/2010 - 100mg 7 days and then M.D. 07/08/2010 Tablets 1 tab daily Bentyl Q8h 90caps 555.0 Roldan Murrieta, 06/24/2010 - 10mg M.D. 08/19/2010 Capsules Pentasa 2 po bid Unknown - 500mg 12/21/2010 Capsules ER Prednisone as directed Unknown - 10mg 04/20/2011 Tablets Opana 1 tablet po qid 100tabs Unknown - 5mg Tablets prn 08/31/2011 Levbid once daily 30tabs Unknown - 0.375mg 06/02/2015 Tablets ER 12HR Lorazepam 1 qd prn Unknown - 0.5mg 04/08/2019 Tablets Hydrocodone-Acetami 1 or 2 tabs by Unknown - nophen mouth every 6-8 04/08/2019 5-325mg hours as needed Tablets for pain Rizatriptan 1 by mouth at Unknown - Benzoate onset of 04/08/2019 5mg migraine, may Tablets repeat after 2 hours max 2/day max 2 days/week Medications Administered in Office Medication SIG Qnty Indications Ordering Provider Date Depomedrol 40MG Andrzej Wen M.D. 11/16/2010 Injection Immunizations CPT Code Status Date Vaccine Lot # [id number] Given 08/19/2010 Influenza Virus 3Yrs & Over [id number] Vital Signs Date Vital Result Comment 04/09/2019 3:45pm Height 63 inches 5'3" Weight 124.00 lb Heart Rate 75 /min BP Systolic 100 mmHg BP Diastolic 64 mmHg BMI (Body Mass Index) 22.0 kg/m2 10/19/2018 10:32am Height 63 inches 5'3" Weight 142.50 lb Heart Rate 80 /min BP Systolic Sitting 96 mmHg BP Diastolic Sitting 72 mmHg Respiratory Rate 16 /min BMI (Body Mass Index) 25.2 kg/m2 09/05/2017 10:53am Height 63 inches 5'3" Weight 137.00 lb BP Systolic 110 mmHg BP Diastolic 72 mmHg Body Temperature 96.9 F Pain Level 7 BMI (Body Mass Index) 24.3 kg/m2 06/02/2015 2:28pm Height 63 inches 5'3" Weight 122.00 lb Heart Rate 62 /min BP Systolic Sitting 100 mmHg BP Diastolic Sitting 60 mmHg Pain Level 7 neck/l shoulder BMI (Body Mass Index) 21.6 kg/m2 04/25/2015 9:39am Height 63 inches 5'3" Weight 120.00 lb Heart Rate 84 /min BP Systolic 107 mmHg BP Diastolic 61 mmHg Pain Level 7 BMI (Body Mass Index) 21.3 kg/m2 02/22/2012 10:40am Height 63 inches 5'3" Weight 147.50 lb Heart Rate 100 /min BP Systolic Sitting 95 mmHg auto cuff - left arm BP Diastolic Sitting 73 mmHg auto cuff - left arm BMI (Body Mass Index) 26.1 kg/m2 08/31/2011 8:34am Weight 162.00 lb Heart Rate 70 /min BP Systolic Sitting 100 mmHg BP Diastolic Sitting 60 mmHg 04/20/2011 10:45am Weight 158.00 lb Heart Rate 74 /min BP Systolic Sitting 118 mmHg BP Diastolic Sitting 78 mmHg 01/19/2011 9:50am Weight 164.00 lb Heart Rate 74 /min BP Systolic Sitting 108 mmHg BP Diastolic Sitting 60 mmHg 12/21/2010 11:35am Weight 163.00 lb Heart Rate 64 /min BP Systolic Sitting 108 mmHg BP Diastolic Sitting 74 mmHg 10/19/2010 11:36am Weight 151.00 lb Heart Rate 105 /min BP Systolic Sitting 118 mmHg BP Diastolic Sitting 70 mmHg O2 % BldC Oximetry 98 % 09/15/2010 2:00pm Weight 146.00 lb Heart Rate 84 /min BP Systolic Sitting 108 mmHg BP Diastolic Sitting 64 mmHg 08/19/2010 10:55am Weight 139.00 lb Heart Rate 97 /min BP Systolic Sitting 100 mmHg BP Diastolic Sitting 70 mmHg O2 % BldC Oximetry 95 % 07/08/2010 11:06am Weight 132.00 lb Heart Rate 77 /min BP Systolic Sitting 116 mmHg BP Diastolic Sitting 70 mmHg 06/24/2010 10:04am Height 63 inches 5'3" Weight 132.75 lb Heart Rate 60 /min BP Systolic Sitting 120 mmHg BP Diastolic Sitting 80 mmHg BMI (Body Mass Index) 23.5 kg/m2 Results Test Date Facility Test Result H/L Range Note Urine Microscopic 10/26/2012 [facility] Urine WBC 1+ (<10 None Seen [address] /hpf) [place] [address] [phone] Urine RBC 1+ (<3 /hpf) None Seen Urine Mucus Present /lpf Absent Urine Epithelial Cells 1+ Squamous /hpf None Seen Bacteria Urine 1+ None Seen Crystals Urine Amorphous /lpf None Seen CBC Auto 10/26/2012 [facility] White Blood 14.6 10^3/uL High 4.8-10.[address] [place] [address] [phone] Red Blood Count 5.13 10^6/uL 4.0-5.4 Hemoglobin 15.6 g/dL 12.0-16.0 Hematocrit 46 % 35-47 Mean Corpuscular Volume 89 fL 80-97 Mean Corpuscular Hemoglobin 31 pg 27-31 Mean Corpuscular HGB Conc 34 g/dL 31-36 Red Cell Distribution Width 13 % 10.5-15 Platelet Count 353 10^3/uL 150-450 Mean Platelet Volume 8 um3 7.4-10.4 Abs Neutrophils 9.2 10^3/uL High 1.5-7.7 Abs Lymphocytes 4.3 10^3/uL 1.0-4.8 Abs Monocytes 0.9 10^3/uL High 0-0.8 Abs Eosinophils 0.1 10^3/uL 0-0.6 Abs Basophils 0.1 10^3/uL 0-0.2 Abs Nucleated RBC 0.01 10^3/uL Granulocyte % 62.9 % 38-83 Lymphocyte % 29.8 % 25-47 Monocyte % 6.2 % 1-9 Eosinophil % 0.5 % 0-6 Basophil % 0.6 % 0-2 Nucleated Red Blood Cells % 0 Comp Metabolic Panel 10/26/2012 [facility] Sodium 138 mmol/L 133-[address] [place] [address] [phone] Potassium 3.8 mmol/L 3.5-5.0 Chloride 108 mmol/L 101-111 Co2 Carbon Dioxide 22.0 mmol/L 22-32 Anion Gap 8.0 mmol/L 2-11 Glucose 81 mg/dL 70-100 Blood Urea Nitrogen 11 mg/dL 6-24 Creatinine 0.80 mg/dL 0.50-1.40 BUN/Creatinine Ratio 13.8 8-20 Calcium 9.5 mg/dL 8.1-9.9 Total Protein 7.6 g/dL 6.2-8.1 Albumin 4.6 g/dL 3.6-5.4 Globulin 3.0 g/dL 2-4 Albumin/Globulin Ratio 1.5 1-3 Total Bilirubin 0.9 mg/dL 0.4-1.5 Alkaline Phosphatase 41 U/L 30-110 Alt 43 U/L 14-54 Ast 28 U/L 12-42 Egfr Non- 87.4 >60 Egfr 112.4 >60 1 Laboratory test finding 10/26/2012 [facility] Lipase 26 U/L 22-[address] [place] [address] [phone] C Reactive Protein < 0.5 mg/dL Less than 0.5 Urinalysis 10/26/2012 [facility] Urine Color Talia [address] [place] [address] [phone] Urine Appearance Clear Urine Specific [place] 1.030 1.010-1.030 Urine Esterase Negative Negative Urine Nitrate Negative Negative Urine Urobilinogen Negative E.U./dL Negative Urine Protein Trace mg/dL Abnormal Negative Urine pH 6.0 5-9 Urine Blood Trace Abnormal Negative Urine Ketones Trace mg/dL Abnormal Negative Urine Bilirubin Negative Negative 2 Urine Glucose Negative mg/dL Negative CBC Auto Diff 06/21/2012 [facility] White Blood 11.7 CUMM High 4.8-10.[address] [place] [address] [phone] Red Cell Count 4.68 CUMM 4.2-5.4 Hemoglobin 14.6 g/dL 12.0-16.0 Hematocrit 42 % 35-47 Mean Corpuscular Volume 89 um3 79-97 Mean Corpuscular Hemoglob 31 pg 27-31 Mean Corpuscular HGB Cone 35 g/dL 32-36 Redcell Distribution WDTH 13 % 10.5-15 Platelet Count 308 CUMM 150-450 Mean Platelet Volume 8.2 um3 7.4-10.4 Gran % 63.2 % 38-83 Lymph % 29.6 % 20-45 Mononuclear % 5.4 % 1-9 Eosinophil % 0.7 % 0-6 Basophil % 1.1 % 0-2 Abs Lymphs 3.5 1.0-4.8 Abs Mononuclear 0.6 0-0.8 Absolute Neutrophil Count 7.4 1.5-7.7 Abs Eosinophils 0.1 0-0.6 Abs Basophils 0.1 0-0.2 (HCG) 06/21/2012 [facility] Specific 1.028 1.010- 1.[address] [place] [address] [phone] Urine NEGATIVE Negative 3 Urinalysis W/Microscopic 06/21/2012 [facility] Ua Color TALIA Yellow [address] [place] [address] [phone] Appearance-Urine CLEAR Clear Specific [place]-Ur 1.028 1.010-1.030 Esterase-Urine 1+ Abnormal Negative Nitrite NEGATIVE Negative Bvodjahyrpns-Bj-GMT NEGATIVE Negative Protein-Urine 2+ Abnormal Negative PH-Urine 6.0 5-9 Blood-Urine 3+ Abnormal Negative Ketones-Urine TRACE Abnormal Negative Bilirubin-Ur SEE ICTOTEST Abnormal Negative Glucose-Urine NEGATIVE Negative WBC-Urine 3-5 0-5 RBC-Urine TNTC Abnormal 0-2 Mucus Urine MODERATE None Epith Cells-Ur FEW None Bacteria-Urine TRACE None Amorphous Sed-U 1+ None Laboratory test 06/21/2012 [facility] Ictotest NEGATIVE 4 finding [address] [place] [address] [phone] Comp Metabolic Panel 06/21/2012 [facility] Sodium 141 mmol/L 135-145 [address] [place] [address] [phone] Potassium 3.6 mmol/L 3.5-5.0 Chloride 109 mmol/L 101-111 Co2 (Carbon Dioxide) 26.0 mmol/L 22-32 Anion Gap 6.0 mmol/L 2-11 5 Glucose 94 mg/dL 70-100 BUN 7 mg/dL 6-24 Creatinine 0.6 mg/dL 0.50-1.40 One Over Creatinine 1.66 BUN/Creatinine Ratio 11.7 8-20 Calcium 8.8 mg/dL 8.1-9.9 Total Protein 7.5 GM/DL 6.2-8.1 Albumin 4.4 GM/DL 3.6-5.4 Globulin 3.1 GM/DL 2-4 Albumin/Globulin Ratio 1.4 1-3 Bilirubin Total 0.7 mg/dL 0.4-1.5 6 Alkaline Phosphatase 40 U/L 30-110 Alt (SGPT) 46 U/L 14-54 Ast (Sgot) 39 U/L 12-42 eGFR Non- 122.8 > 60 eGFR 158.0 > 60 7 Laboratory 06/21/2012 [facility] C Reactive < 0.5 mg/dL Less Than 0.5 test finding [address] [facility] [place] [address] [phone] Urine Culture 06/21/2012 [facility] M 8 & Sensitivi [address] [facility] -- <SEE NOTE> [place] [address] [phone] Laboratory 06/21/2012 [facility] HIV Self Nonreactive Nonreactive 9 test finding [address] [facility] [place] [address] [phone] Comp Metabolic 10/25/2011 [facility] Sodium 138 mmol/L 135- 145 [place] [address] [phone] Potassium 3.4 mmol/L Low 3.5-5.0 Chloride 108 mmol/L 101-111 Co2 (Carbon Dioxide) 22.0 mmol/L 22-32 Anion Gap 8.0 mmol/L 2-11 10 Glucose 88 mg/dL 70-100 BUN 8 mg/dL 6-24 Creatinine 0.6 mg/dL 0.50-1.40 One Over Creatinine 1.66 BUN/Creatinine Ratio 13.3 8-20 Calcium 9.1 mg/dL 8.1-9.9 Total Protein 7.0 GM/DL 6.2-8.1 Albumin 4.1 GM/DL 3.6-5.4 Globulin 2.9 GM/DL 2-4 Albumin/Globulin Ratio 1.4 1-3 Bilirubin Total 0.6 mg/dL 0.4-1.5 11 Alkaline Phosphatase 45 U/L 30-110 Alt (SGPT) 42 U/L 14-54 Ast (Sgot) 30 U/L 12-42 eGFR Non- 122.8 > 60 eGFR 158.0 > 60 12 Laboratory test 10/25/2011 [facility] Magnesium 1.8 mg/dL 1.7 -2.6 finding [address] [place] [address] [phone] CBC Auto Diff 10/25/2011 [facility] White Blood 14.4 CUMM High 4.8-10.8 [address] [facility] [place] [address] [phone] Red Cell Count 5.15 CUMM 4.2-5.4 Hemoglobin 15.9 g/dL 12.0-16.0 Hematocrit 45 % 35-47 Mean Corpuscular Volume 88 um3 79-97 Mean Corpuscular Hemoglob 31 pg 27-31 Mean Corpuscular HGB Cone 35 g/dL 32-36 Redcell Distribution WDTH 12 % 10.5-15 Platelet Count 325 CUMM 150-450 Mean Platelet Volume 8.7 um3 7.4-10.4 Manual Differential 10/25/2011 [facility] Polysegmented 69 % 38-[address] [place] [address] [phone] Lymphocyte 19 % Low 25-47 Monocyte 5 % 0-13 Eosinophil 1 % 0-6 Atypical Lymph 6 % 0-6 Absolute Neutrophil Count 9.9 Anisocytosis SLIGHT Wet Prep 12/26/2010 [facility] Wet Prep SMEAR REVIEWED B <SEE NOTE> [address] [place] [address] [phone] Wet Prep MANY (GREATER TH <SEE NOTE> 14 GC/Chlamydia 12/26/2010 [facility] Chlamydia N [address] [place] [address] [phone] GC (N. 12/26/2010 [facility] GC (N. N 16 Gonorrhoeae) Rna [address] Gonorrhoeae) [place] [address] [phone] CBC No Diff 12/25/2010 [facility] White Blood Count 9.0 CUMM 4.8-[address] 0.8 [place] [address] [phone] Red Cell Count 4.70 CUMM 4.2-5.4 Hemoglobin 14.7 g/dL 12.0-16.0 Hematocrit 42 % 35-47 Mean Corpuscular Volume 89 um3 79-97 Mean Corpuscular Hemoglob 31 pg 27-31 Mean Corpuscular HGB Cone 35 g/dL 32-36 Redcell Distribution WDTH 12 % 10.5-15 Platelet Count 325 CUMM 150-450 Mean Platelet Volume 8.1 um3 7.4-10.4 Urinalysis 12/25/2010 [facility] Ua Color YELLOW Yellow [address] [place] [address] [phone] Appearance-Urine CLEAR Clear Specific [place]-Ur 1.026 1.010-1.030 Esterase-Urine NEGATIVE Negative Nitrite NEGATIVE Negative Ofqcnvmybjon-Fz-BMR NEGATIVE Negative Protein-Urine NEGATIVE Negative PH-Urine 6.0 5-9 Blood-Urine NEGATIVE Negative Ketones-Urine NEGATIVE Negative Bilirubin-Ur NEGATIVE Negative Glucose-Urine NEGATIVE Negative Comp Metabolic Panel 12/25/2010 [facility] Sodium 137 mmol/L 135-[address] [place] [address] [phone] Potassium 3.9 mmol/L 3.5-5.0 Chloride 105 mmol/L 101-111 Co2 (Carbon Dioxide) 27.0 mmol/L 22-32 Anion Gap 5.0 mmol/L 2-11 17 Glucose 80 mg/dL 70-100 BUN 10 mg/dL 6-24 Creatinine 0.70 mg/dL 0.50-1.40 One Over Creatinine 1.40 BUN/Creatinine Ratio 14.3 8-20 Calcium 8.8 mg/dL 8.1-9.9 Total Protein 6.9 GM/DL 6.2-8.1 Albumin 4.3 GM/DL 3.6-5.4 Globulin 2.6 GM/DL 2-4 Albumin/Globulin Ratio 1.7 1-3 Bilirubin Total 0.5 mg/dL 0.4-1.5 18 Alkaline Phosphatase 39 U/L 30-110 Alt (SGPT) 78 U/L High 14-54 Ast (Sgot) 51 U/L High 12-42 eGFR Non- 103.7 > 60 eGFR 133.4 > 60 19 Laboratory test 12/25/2010 [facility] Lipase 21 U/L Low 22-[address] [place] [address] [phone] Manual 12/25/2010 [facility] Polysegmented 48 % 38-[address] [place] [address] [phone] Lymphocyte 43 % 25-47 Monocyte 5 % 0-13 Atypical Lymph 4 % 0-6 Absolute Neutrophil Count 4.3 Anisocytosis SLIGHT (HCG) 12/25/2010 [facility] Specific 1.026 1.010- 1.[address] [place] [address] [phone] Urine NEGATIVE Negative 20 Hemoglobin/Hematacrit 10/05/2010 [facility] Hemoglobin 13.7 12.0-16.[address] g/[place] [address] [phone] Hematocrit 40 % 35-47 Laboratory test 10/05/2010 [facility] Thyroxine Free 0.92 NG/ML 0.61-1.[address] [place] [address] [phone] T3 Total 0.67 NG/ML 0.5-1.7 TSH 0.56 MIU/ML 0.34-5.60 Laboratory test 08/19/2010 [facility] TSH 1.30 MIU/ML 0.34- 5.[address] [place] [address] [phone] Comp Metabolic 08/19/2010 [facility] Sodium 137 mmol/L 135- [address] [place] [address] [phone] Potassium 4.3 mmol/L 3.5-5.0 Chloride 102 mmol/L 101-111 Co2 (Carbon Dioxide) 28.0 mmol/L 22-32 Anion Gap 7.0 mmol/L 2-11 21 Glucose 116 mg/dL High 70-100 22 BUN 12 mg/dL 6-24 Creatinine 0.70 mg/dL 0.50-1.40 One Over Creatinine 1.40 BUN/Creatinine Ratio 17.1 8-20 Calcium 9.5 mg/dL 8.1-9.9 Total Protein 7.0 GM/DL 6.2-8.1 Albumin 4.2 GM/DL 3.6-5.4 Globulin 2.8 GM/DL 2-4 Albumin/Globulin Ratio 1.5 1-3 Bilirubin Total 0.4 mg/dL 0.4-1.5 23 Alkaline Phosphatase 45 U/L 30-110 Alt (SGPT) 28 U/L 14-54 Ast (Sgot) 25 U/L 12-42 eGFR Non- 111.2 > 60 eGFR 134.6 > 60 24 CBC With 08/19/2010 [facility] White Blood 18.0 CUMM High 4.8- 10.8 Electronic Diff [address] [place] [address] [phone] Red Cell Count 4.84 CUMM 4.2-5.4 Hemoglobin 14.7 g/dL 12.0-16.0 Hematocrit 44 % 35-47 Mean Corpuscular Volume 90 um3 79-97 Mean Corpuscular Hemoglob 30 pg 27-31 Mean Corpuscular HGB Cone 34 g/dL 32-36 Redcell Distribution WDTH 13 % 10.5-15 Platelet Count 357 CUMM 150-450 Mean Platelet Volume 7.1 um3 Low 7.4-10.4 25 Manual Differential 08/19/2010 [facility] Polysegmented 81 % 38-[address] [place] [address] [phone] Lymphocyte 17 % Low 25-47 Monocyte 2 % 0-13 Absolute Neutrophil Count 14.5 RBC Morphology NORMAL 1 Because ethnic data is not always readily available, this report includes an eGFR for both -Americans and non- Americans. The National Kidney Disease Education Program (NKDEP) does not endorse the use of the MDRD equation for patients that are not between the ages of 18 and 70, are , have extremes of body size, muscle mass, or nutritional status, or are non- or non-. According to the National Kidney Foundation, irrespective of diagnosis, the stage of the disease is based on the level of kidney function: Stage Description GFR(mL/min/1.73 m(2)) 1 Kidney damage with normal or decreased GFR 90 2 Kidney damage with mild decrease in GFR 60-89 3 Moderate decrease in GFR 30-59 4 Severe decrease in GFR 15-29 5 Kidney failure <15 (or dialysis) 2 Effective 09/06/12, bilirubin confirmation by ictotest is discontinued. False-positive results for bilirubin may occur due to color interference from large amounts of blood in the urine, very concentrated urine, or drugs that discolor urine such as phenazopyridine(Pyridium). 3 If is still suspected, please repeat test after 48 to 72 hours. . This test detects intact HCG only and is indicated for the early detection of . 4 ICTOTEST IS A QUALITATIVE CONFIRMATORY TEST FOR BILIRUBIN. 5 Anion gap measurement may be of limited value in the presence of any alkalosis, especially in a combined acid base disorder. . 6 A metabolite of Naproxen, O-desmethylnaproxen, has been shown to interfere with the Jendrassik-Jazmine method for measuring total bilirubin. Samples from patients who have taken Naproxen have shown spurious elevation in total bilirubin levels. 7 Because ethnic data is not always readily available, this report includes an eGFR for both -Americans and non- Americans. The National Kidney Disease Education Program (NKDEP) does not endorse the use of the MDRD equation for patients that are not between the ages of 18 and 70, are , have extremes of body size, muscle mass, or nutritional status, or are non- or non-. According to the National Kidney Foundation, irrespective of diagnosis, the stage of the disease is based on the level of kidney function: Stage Description GFR(mL/min/1.73 m(2)) 1 Kidney damage with normal or decreased GFR 90 2 Kidney damage with mild decrease in GFR 60-89 3 Moderate decrease in GFR 30-59 4 Severe decrease in GFR 15-29 5 Kidney failure <15 (or dialysis) 8 RUN DATE: 06/23/12 [facility] NMI LIVE PAGE 1 RUN TIME: 1142 Specimen Inquiry RUN USER: INTERFACE Name: RUTHIE CRUZ Status: DEP ER Re06/21/12 Age/Sex: 26/F Unit#: [id number] Location: [facility] Reyes : 89 SPEC #: [id number] LES: 06/21/12 STATUS: COMP REQ #: [id number] RECD: 06/21/12 [facility] DR: Miah DALTON,Jl Ibarra SOURCE: URINE ENTR: 06/21/12-[address]: Glenny DALTON, Roldan Mcclellan [facility]: ORDERED: URINE C S ACT WKST: UR 06/23/12 #1 Procedure Result Verified Site > URINE CULTURE SENSITIVI Final 06/23/12- 1142 ML SPECIMEN CONTAINS NORMAL URETHRAL OR PERINEAL CATHY AND DOES NOT SUGGEST URINARY TRACT INFECTION ML - [facility] State Permit #[id number] [address] [place] [id number] DEPARTMENT OF PATHOLOGY, [address] [place] [address] [facility] Permit #[id number] Grey Bal M.D. Director Fe Cardona M.D. [employer] 9 It is recognized that currently available assays for the detection of antibodies to HIV-1 and/or HIV-2 may not detect all infected individuals. HIV antibodies may be undetectable in some stages of the infection and in some clinical conditions. The performance of this assay has not been established for populations of infants or children. Assayed by Chemiluminescence Microparticle Immunoassay on the Barbara Advia Centaur CP. Values obtained with different methods or kits cannot be used interchangeably.The diagnostic specificity of the ADVIA Centaur 1/O/2 Enhanced assay in the low risk population was 99.90% (6052/6058) with a 95% confidence interval of 99.78 to 99.96%. 10 Anion gap measurement may be of limited value in the presence of any alkalosis, especially in a combined acid base disorder. . 11 A metabolite of Naproxen, O-desmethylnaproxen, has been shown to interfere with the Jendrassik-Terlingua method for measuring total bilirubin. Samples from patients who have taken Naproxen have shown spurious elevation in total bilirubin levels. 12 Because ethnic data is not always readily available, this report includes an eGFR for both -Americans and non- Americans. The National Kidney Disease Education Program (NKDEP) does not endorse the use of the MDRD equation for patients that are not between the ages of 18 and 70, are , have extremes of body size, muscle mass, or nutritional status, or are non- or non-. According to the National Kidney Foundation, irrespective of diagnosis, the stage of the disease is based on the level of kidney function: Stage Description GFR(mL/min/1.73 m(2)) 1 Kidney damage with normal or decreased GFR 90 2 Kidney damage with mild decrease in GFR 60-89 3 Moderate decrease in GFR 30-59 4 Severe decrease in GFR 15-29 5 Kidney failure <15 (or dialysis) 13 SMEAR REVIEWED BY E at 0813 on 12/26/10. CORRECTED RESULT! WRONG RESULT WAS FEW CLUE CELLS VERBAL TO ALLAN GOLDSTEIN BY E at 0816 on 12/26/10. 14 MANY (GREATER THAN 5/HPF) ABSENT MODERATE (1 TO 4/HPF) ABSENT 15 NEGATIVE FOR CHLAMYDIA TRACHOMATIS rRNA A negative result does not preclude the presence of a C.trachomatis or N.gonorrhoeae infection because results are dependent on adequate specimen collection, absence of inhibitors, and sufficient rRNA to be detected. Test results may be affected by improper specimen collection, improper specimen storage, technical error, or specimen mixup. 16 NEGATIVE FOR NEISSERIA GONORRHOEAE rRNA A negative result does not preclude the presence of a C.trachomatis or N.gonorrhoeae infection because results are dependent on adequate specimen collection, absence of inhibitors, and sufficient rRNA to be detected. Test results may be affected by improper specimen collection, improper specimen storage, technical error, or specimen mixup. 17 Anion gap measurement may be of limited value in the presence of any alkalosis, especially in a combined acid base disorder. . 18 A metabolite of Naproxen, O-desmethylnaproxen, has been shown to interfere with the Jendrassik-Jazmine method for measuring total bilirubin. Samples from patients who have taken Naproxen have shown spurious elevation in total bilirubin levels. 19 Because ethnic data is not always readily available, this report includes an eGFR for both -Americans and non- Americans. The National Kidney Disease Education Program (NKDEP) does not endorse the use of the MDRD equation for patients that are not between the ages of 18 and 70, are , have extremes of body size, muscle mass, or nutritional status, or are non- or non-. According to the National Kidney Foundation, irrespective of diagnosis, the stage of the disease is based on the level of kidney function: Stage Description GFR(mL/min/1.73 m(2)) 1 Kidney damage with normal or decreased GFR 90 2 Kidney damage with mild decrease in GFR 60-89 3 Moderate decrease in GFR 30-59 4 Severe decrease in GFR 15-29 5 Kidney failure <15 (or dialysis) 20 If is still suspected, please repeat test after 48 to 72 hours. . 21 Anion gap measurement may be of limited value in the presence of any alkalosis, especially in a combined acid base disorder. . 22 Note change in reference range as of 05/30/08. The change was based on recommendations from the [place] [employer]. 23 A metabolite of Naproxen, O-desmethylnaproxen, has been shown to interfere with the Jendrassik-Terlingua method for measuring total bilirubin. Samples from patients who have taken Naproxen have shown spurious elevation in total bilirubin levels. 24 Because ethnic data is not always readily available, this report includes an eGFR for both -Americans and non- Americans. The National Kidney Disease Education Program (NKDEP) does not endorse the use of the MDRD equation for patients that are not between the ages of 18 and 70, are , have extremes of body size, muscle mass, or nutritional status, or are non- or non-. According to the National Kidney Foundation, irrespective of diagnosis, the stage of the disease is based on the level of kidney function: Stage Description GFR(mL/min/1.73 m(2)) 1 Kidney damage with normal or decreased GFR 90 2 Kidney damage with mild decrease in GFR 60-89 3 Moderate decrease in GFR 30-59 4 Severe decrease in GFR 15-29 5 Kidney failure <15 (or dialysis) 25 Neutrophilia % Lymphopenia % Procedures Date Code Description Status 05/27/2011 76790205 Colonoscopy Completed 01/28/2011 69882 Pulmonary Function><Bronchodilator Completed 11/16/2010 29013 Inject/Drain Joint/Bursa Major W/O US Completed Encounters Type Date Location Provider Dx Diagnosis Office Visit 04/09/2019 [facility] Walt Rodney, G43.019 Migraine w/o aura, 3:45p [facility] intractable, without status migrainosus R55 Syncope and collapse Office Visit 10/19/2018 11:15a [facility] Walt Rodney, M54.2 Cervicalgia [facility] G43.009 Migraine w/o aura, not intractable, w/o status migrainosus Office Visit 09/05/2017 [facility] Jessie M25.532 Pain in left 11:00a [facility] wrist Office Visit 06/02/2015 Neurosurgery Pierre Andujar 723.1 Cervicalgia 2:00p [facility] M.D. 721.0 Spondylosis Cervical W/O Myelopathy Office Visit 04/25/2015 9:00a [facility] Darrell Flannery 723.1 Cervicalgia [facility] [place] 723.4 Brachial Neuritis Or Radiculitis NOS Office Visit 02/22/2012 10:45a [facility] Internal Nancy Vincent, 578.1 Blood In Stool Medicine - [facility] Micah Melena 228.04 Hemangioma Intra Abdominal Structures 296.82 Depressive Disorder Atypical 780.52 Insomnia Unspecified Office Visit 08/31/2011 8:40a DO Not Use Detective Supervisor Roldan Pachikara, 530.81 Esophageal AT [facility] Reflux 296.82 Depressive Disorder Atypical 305.1 Tobacco Use Disorder Office Visit 04/20/2011 10:20a DO Not Use Detective Supervisor Palermo Pachikara, 296.82 Depressive AT [facility] Disorder Atypical 780.52 Insomnia Unspecified 530.81 Esophageal Reflux Office Visit 01/19/2011 9:40a DO Not Use Detective Supervisor Roldan Pachikara, 719.45 Pain Joint AT [facility] Pelvic Region & Thigh 296.82 Depressive Disorder Atypical 493.90 Asthma Unspec W/O Status Asthmaticus 305.1 Tobacco Use Disorder Office Visit 12/21/2010 11:20a DO Not Use Detective Supervisor Roldan Pachikara, 727.3 Bursitis Other AT [facility] 296.82 Depressive Disorder Atypical 530.81 Esophageal Reflux Office Visit 10/19/2010 11:00a DO Not Use Detective Supervisor Roldan Pachikara, 924.01 Contusion Hip AT [facility] 724.2 Lumbago 296.82 Depressive Disorder Atypical 535.40 Gastritis Other Spec W/O Hemorrhage Office Visit 10/12/2010 2:45p Orthopedic Andrzej Wen, 846.9 Sprains & Strains [facility] [place] [facility] Sacroiliac Region Unspec Site 847.9 Sprains & Strains Unspec Site Of Back Office Visit 09/15/2010 1:40p DO Not Use Detective Supervisor Palermo 924.01 Contusion Hip AT Bear Murrieta M.D. Office Visit 08/19/2010 10:40a DO Not Use Detective Supervisor Palermo V04.81 Need For AT [place] Mur[place] M.D. 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 at [facility]04/09/2019 - Walt Rodney M.D.G43.019 Migraine without aura, intractable, without status migrainosNew Medication:Topiramate 50 mg - Take 1 in am and 2 in pmFollow up:Follow up in 6 weeks with Brandon Syncope and collapseNew Orders:Event Monitor, Ordered: 04/09/19EEG, Routine, Ordered: 04/09/19
--- NOTE | 2019-05-02 07:45 | ED ---
Complex/Multi-Sys Presentation - HPI Summary HPI Summary: A 33 y/o female presents to [facility] with a chief complaint of "not feeling good". At triage she rated her pain as a 7/10 in severity. She reports feeling fatigued , having syncopal episodes, a headache in her left frontal area, abdominal pain , urinating blood one day this past week and lower back pain. She says that she has a "sore that is coming from her nose" so she went to her PCP yesterday and was given Z-pack for a sinus infection and cream for her nose. She came to the ED today becayse she feels "10 times worse". She reports a Hx of Chron's disease , migraines, asthma, insomnia, IBS, depression and anxiety. She has a Holter monitor and notes being followed by Dr. Rodney, neurologist. She reports a FHx of RA and Lupus. She reports being allergic to Reglan and Penicillin and Ibuprofen. - History Of Current Complaint Chief Complaint: EDGeneral Time Seen by Provider: 05/02/19 07:32 Hx Obtained From: Patient Onset/Duration: Gradual Onset, Lasting Weeks, Still Present Timing: Constant Severity Currently: Severe Severity Initially: Severe Character: Unable To Describe Aggravating Factor(s): Nothing Alleviating Factor(s): Nothing Associated Signs And Symptoms: Positive: Syncope, Headache, Abdominal Pain, Back Pain, Other - positive: Hematuria one time this past week. Negative: Fever - Allergies/Home Medications Allergies/Adverse Reactions: Allergies Allergy/AdvReac Type Severity Reaction Status Date / Time metoclopramide [From Reglan] Allergy Severe See Comment Verified 05/02/19 07:18 latex Allergy Intermediate Blisters Verified 05/02/19 07:18 Penicillins Allergy Intermediate Hives Verified 05/02/19 07:18 ibuprofen AdvReac Intermediate See Comment Verified 05/02/19 07:18 Home Medications: Home Medications Acetaminophen [Acetaminophen Extra Strength] 500 mg PO Q6H PRN 05/02/19 [ History Confirmed 05/02/19] Azithromycin 1 tab PO DAILY 05/02/19 [History Confirmed 05/02/19] Mometasone Furoate [Nasonex] 1 puff BOTH NARES DAILY 05/02/19 [History Confirmed 05/02/19] Mupirocin 2% OINT* [Bactroban 2 % Oint*] 2 - 3 applic TOPICAL TID 05/02/19 [ History Confirmed 05/02/19] PMH/Surg Hx/FS Hx/Imm Hx Endocrine/Hematology History: Denies: Hx Anticoagulant Therapy, Hx Diabetes, Hx Thyroid Disease Cardiovascular History: Denies: Hx Hypertension, Hx Pacemaker/ICD Respiratory History: Denies: Hx Asthma, Hx Chronic Obstructive Pulmonary Disease (COPD) GI History: Reports: Hx Crohn's Disease, Other GI Disorders - enlarged liver, crohns, GERD History: Denies: Hx Renal Disease Sensory History: Denies: Hx Hearing Aid Neurological History: Reports: Hx Migraine, Hx Seizures Denies: Hx Dementia Psychiatric History: Reports: Hx Panic Disorder Denies: Hx Substance Abuse - Surgical History Surgery Procedure, Year, and Place: TUBAL LIGATION. tonsilectomy. 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 Oral Surgery. crohns - Immunization History Date of Influenza Vaccine: mo Infectious Disease History: Yes Infectious Disease History: Denies: Hx Clostridium Difficile, Hx Hepatitis, Hx Human Immunodeficiency Virus (HIV), Hx of Known/Suspected MRSA, Hx Shingles, Hx Tuberculosis, Hx Known/ Suspected VRE, Hx Known/Suspected VRSA, History Other Infectious Disease, Traveled Outside the [place] in Last 30 Days - Family History Known Family History: Positive: Diabetes - grandmother Family History: FHx of blood clots - grandmother. FHx of breast CA - mother, grandmother. FHx of Lupus, RA - mother - Social History Alcohol Use: Rare Alcohol Amount: holidays only and her Birthday on [birth year] Substance Use Type: Reports: None Smoking Status (MU): Former Smoker Type: Cigarettes Amount Used/How Often: 2 cig. /day Length of Time of Smoking/Using Tobacco: 8 years Have You Smoked in the Last Year: Yes Review of Systems Positive: Fatigue. Negative: Fever Positive: Other - positive: "sinus infection" Positive: Abdominal Pain Positive: hematuria - one day this past week Positive: Myalgia - lower back pain Positive: Headache, Syncope All Other Systems Reviewed And Are Negative: Yes Physical Exam - Summary Physical Exam Summary: GENERAL: Patient is a well-developed and nourished F who is lying comfortable in the stretcher. Patient is not in any acute respiratory distress. HEAD AND FACE: Normocephalic EYES: PERRLA, EOMI x 2. EARS: Hearing grossly intact. MOUTH: Oropharynx within normal limits. NECK: Supple, trachea is midline, no adenopathy, no JVD, no carotid bruit. CHEST: Symmetric, no tenderness at palpation LUNGS: Clear to auscultation bilaterally. No wheezing or crackles. CVS: Regular rate and rhythm, S1 and S2 present, no murmurs or gallops appreciated. ABDOMEN: Soft, diffusely TTP. Bowel sounds are normal. No abnormal abdominal pulsations. EXTREMITIES: Full ROM in all major joints, no edema, no cyanosis or clubbing. NEURO: Alert and oriented x 3. No acute neurological deficits. Speech is normal and follows commands. SKIN: Dry and warm Triage Information Reviewed: Yes Vital Signs On Initial Exam: Initial Vitals Temp Pulse Resp BP Pulse Ox 97.9 F 107 16 119/86 99 05/02/19 07:14 05/02/19 07:14 05/02/19 07:14 05/02/19 07:14 05/02/19 07:14 Vital Signs Reviewed: Yes - Marcio Coma Scale Best Eye Response: 4 - Spontaneous Best Motor Response: 6 - Obeys Commands Best Verbal Response: 5 - Oriented Coma Scale Total: 15 Diagnostics - Vital Signs Vital Signs Temp Pulse Resp BP Pulse Ox 05/02/19 07:14 97.9 F 107 16 119/86 99 - Laboratory Result Diagrams: 05/02/19 07:45 05/02/19 07:45 Lab Statement: Any lab studies that have been ordered have been reviewed, and results considered in the medical decision making process. - CT Brain CT Interpretation Completed By: Radiologist Summary of CT Findings: NO EVIDENCE FOR ACUTE INTRACRANIAL ABNORMALITY. ED physician has reviewed this imaging report. abdomen/pelvis CT Interpretation Completed By: Radiologist Summary of CT Findings: There is suggestion of wall thickening of the terminal ileum which may be. involved with Crohn's disease. No evidence of abscess is noted. ED physician has reviewed this imaging report. Complex Multi-Symp Course/Dx Course Of Treatment: A 33 y/o female presents to [facility] with a chief complaint of "not feeling good". She reports feeling fatigued, having syncopal episodes, a headache in her left frontal area, abdominal pain, urinating blood one day this past week and lower back pain. The physical exam revealed that she was diffusely TTP. In the ED course the patient was given Morphine IV, Zofran IV and Sodium Chloride IV. Brain CT impression: NO EVIDENCE FOR ACUTE INTRACRANIAL ABNORMALITY. Blood work, chemistries and urines obtained and are WNL. Abdomen/ pelvis CT impression: There is suggestion of wall thickening of the terminal ileum which may be. involved with Crohn's disease. No evidence of abscess is noted. The patient will be discharged. I discussed results with patient, and she reports feeling better. She is hemodynamically stable and safe for discharge. Strict return precautions given and she will otherwise follow up with her PCP. - Diagnoses Provider Diagnoses: Malaise, Abdominal pain Discharge - Sign-Out/Discharge Documenting (check all that apply): Patient Departure - DC Patient Received Moderate/Deep Sedation with Procedure: No - Discharge Plan Condition: Stable Disposition: HOME Patient Education Materials: Acute Abdominal Pain (DC) Referrals: Dalton Warner MD [Primary Care Provider] - Additional Instructions: Follow up with your primary care physician in 1-3 days. RETURN TO THE EMERGENCY DEPARTMENT FOR CHANGING OR WORSENING SYMPTOMS. - Billing Disposition and Condition Condition: STABLE Disposition: Home - Attestation Statements Document Initiated by Janine: Yes Documenting Scribe: Nate Nguyen Provider For Whom Janine is Documenting (Include Credential): Namrata Mckay MD Scribe Attestation: I, Ntae Nguyen, scribed for Namrata Mckay MD on 05/02/19 at 1610. Scribe Documentation Reviewed: Yes Provider Attestation: The documentation as recorded by the Nate ni accurately reflects the service I personally performed and the decisions made by me, Lindsey Mckay MD Status of Scribe Document: Viewed
[2019-05-02] MEDS ORDERED: Ondansetron INJ* 2 MG/ML VIAL IV ONE (07:53)
[2019-05-02] MEDS ORDERED: Morphine 4 MG/ML VIAL (1 ml) 4 MG/ML VIAL IV ONE (07:53)
[2019-05-02] MEDS ORDERED: NS 0.9% 1000 ML** 1,000 ML IV ONE (07:53)
[2019-05-02 07:57] LABS: ABS Eosinophils 0.1 10^3/ul (0-0.6); ABS Lymphocytes 1.8 10^3/ul (1.0-4.8); ABS Monocytes 0.6 10^3/ul (0-0.8); ABS Neutrophils 6.7 10^3/ul (1.5-7.7); Eosinophil % 1.2 %; Hematocrit 42 % (35-47); Hemoglobin 14.5 g/dL (12.0-16.0); Lymphocyte % 19.1 %; Mean Corpuscular HGB Conc 35 g/dL (31-36); Mean Corpuscular Hemoglobin 31 pg (27-31); Mean Corpuscular Volume 90 fL (80-97); Mean Platelet Volume 8.4 fL (7.4-10.4); Platelet Count 345 10^3/uL (150-450); Red Blood Count 4.63 10^6 /uL (3.70-4.87); Red Cell Distribution Width 14 % (10-15); White Blood Count 9.3 10^3/uL (3.5-10.8)
[2019-05-02 08:15] LABS: ALT 14 U/L (7-52); AST 17 U/L (13-39); Albumin 4.7 g/dL (3.2-5.2); Albumin/Globulin Ratio 1.4 (1-3); Alkaline Phosphatase 44 U/L (34-104); Anion Gap 8 mmol/L (2-11); BUN/Creatinine Ratio 14.9 (8-20); Blood Urea Nitrogen 13 mg/dL (6-24); CO2 Carbon Dioxide 20 mmol/L (22-32); Calcium 9.4 mg/dL (8.6-10.3); Chloride 110 mmol/L (101-111); EGFR African American 91.9 (>60); EGFR Non-African American 75.9 (>60); Globulin 3.3 g/dL (2-4); Glucose 98 mg/dL (70-100); Magnesium 2.1 mg/dL (1.9-2.7); Potassium 3.4 mmol/L (3.5-5.0); Sodium 138 mmol/L (135-145)
[2019-05-02 08:16] LABS: Activated Partial Thrombo Time 35.3 seconds (26.0-38.0); INR 0.9 (0.82-1.09)
[2019-05-02 08:21] LABS: HCG Pregnancy < 0.60 mIU/mL
[2019-05-02] MEDS ORDERED: Iohexol 300* (CONTRAST) 10 ML SDV IV ONE (09:08)
[2019-05-02 09:11] LABS: TSH (Thyroid Stimulating Horm) 0.52 mcIU/mL (0.34-5.60)
[2019-05-02 09:13] LABS: Free T4 0.85 ng/dL (0.61-1.12)
[2019-05-02 09:46] LABS: Urine Appearance Clear; Urine Bacteria Absent (Absent); Urine Bilirubin Negative (Negative); Urine Blood 1+ (Negative); Urine Color Straw; Urine Glucose Negative (Negative); Urine Ketones Negative (Negative); Urine Nitrite Negative (Negative); Urine Protein Negative (Negative); Urine Red Blood Cell Trace(0-2/hpf) (Absent); Urine Specific Gravity 1.008 (1.010-1.030); Urine Squamous Epithelial Cell Present (Absent); Urine Urobilinogen Negative (Negative); Urine White Blood Cell Trace(0-5/hpf) (Absent)
[2019-05-02] MEDS ORDERED: Potassium Chlor TAB* 20 MEQ TAB.ER PO ONE (11:00)
[2019-05-02 12:11] VITALS: BP 96/67
== END 2019-05-02 12:10 | disposition home or self-care (01) ==
LOC: ED 07:12
DX: R53.81 Other malaise (principal); R10.9 Unspecified abdominal pain; K50.90 Crohn's disease, unspecified, without complications; Z88.0 Allergy status to penicillin; Z88.8 Allergy status to other drugs, medicaments and biological substances; Z91.040 Latex allergy status; Z79.899 Other long term (current) drug therapy; Z87.891 Personal history of nicotine dependence
CPT/HCPCS: 36415; 70450; 74177; 80053; 81003; 81015; 83605; 83690; 83735; 84439; 84443; 84702; 85025; 85610; 85730; 87040; 87086; 96361; 96374; 96375; 99284; A9270-GY; J2270; J2405; Q9967

== ENCOUNTER 2019-07-25 07:32 | Emergency (ER) | payer BC, MEDICAID ==
--- NOTE | 2019-07-25 07:59 | ED ---
HPI Chest Pain - HPI Summary HPI Summary: Pt is a 33 y/o F presenting to the ED with a chief complaint of chest pain initially onset last night diffusely across her chest and radiating through to her back and down to her hands. She states that over the past few weeks she has had intermittent lower extremity cramping which she attributed to low potassium , as well as abdominal pain throughout this past week. With this chest pain, she notes weakness in her L arm, shortness of breath, congestion, and nausea. She denies vomiting. She notes hx of PTSD and panic attacks but states this is significantly different. 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 - History of Current Complaint Chief Complaint: EDChestPainROMI Time Seen by Provider: 07/25/19 07:43 Hx Obtained From: Patient Hx Last Menstrual Period: 06/19/17 Onset/Duration: Started Hours Ago, Still Present Timing: Constant, Lasting Hours Initial Severity: Moderate Current Severity: Severe Pain Intensity: 8 Pain Scale Used: 0-10 Numeric Chest Pain Location: Diffuse Chest Pain Radiates: Yes Chest Pain Radiates To:: Back, Other - hands Aggravating Factor(s): Nothing Alleviating Factor(s): Nothing Associated Signs and Symptoms: Positive: Chest Pain, Weakness, Shortness of Breath, Nausea, Back Pain, Abdominal Pain, Nasal Congestion, Other: - lower extremity pain. Negative: Vomiting - Allergy/Home Medications Allergies/Adverse Reactions: Allergies Allergy/AdvReac Type Severity Reaction Status Date / Time metoclopramide [From Reglan] Allergy Severe See Comment Verified 05/02/19 07:18 latex Allergy Intermediate Blisters Verified 05/02/19 07:18 Penicillins Allergy Intermediate Hives Verified 05/02/19 07:18 ibuprofen AdvReac Intermediate See Comment Verified 05/02/19 07:18 Home Medications: Home Medications Topiramate TAB(*) [Topamax 25 MG tab] 100 mg PO BEDTIME 07/25/19 [History Confirmed 07/25/19] PMH/Surg Hx/FS Hx/Imm Hx Previously Healthy: Yes Endocrine/Hematology History: Denies: Hx Anticoagulant Therapy, Hx Diabetes, Hx Thyroid Disease Cardiovascular History: Denies: Hx Hypertension, Hx Pacemaker/ICD Respiratory History: Denies: Hx Asthma, Hx Chronic Obstructive Pulmonary Disease (COPD) GI History: Reports: Hx Crohn's Disease, Other GI Disorders - enlarged liver, crohns, GERD History: Denies: Hx Renal Disease Sensory History: Denies: Hx Hearing Aid Neurological History: Reports: Hx Migraine, Hx Seizures Denies: Hx Dementia Psychiatric History: Reports: Hx Panic Disorder, Hx Post Traumatic Stress Disorder Denies: Hx Substance Abuse - Surgical History Surgery Procedure, Year, and Place: TUBAL LIGATION. tonsilectomy. 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 Oral Surgery. crohns - Immunization History Date of Influenza Vaccine: mo Infectious Disease History: No Infectious Disease History: Denies: Hx Clostridium Difficile, Hx Hepatitis, Hx Human Immunodeficiency Virus (HIV), Hx of Known/Suspected MRSA, Hx Shingles, Hx Tuberculosis, Hx Known/ Suspected VRE, Hx Known/Suspected VRSA, History Other Infectious Disease, Traveled Outside the [place] in Last 30 Days - Family History Known Family History: Positive: Diabetes - grandmother Family History: FHx of blood clots - grandmother. FHx of breast CA - mother, grandmother. FHx of Lupus, RA - mother - Social History Alcohol Use: Rare Hx Substance Use: No Substance Use Type: Reports: None Hx Tobacco Use: Yes Smoking Status (MU): Former Smoker Type: Cigarettes Amount Used/How Often: 2 cig. /day Length of Time of Smoking/Using Tobacco: 8 years Have You Smoked in the Last Year: Yes Review of Systems Positive: Other - congestion Positive: Chest Pain Positive: Shortness Of Breath Positive: Abdominal Pain, Nausea. Negative: Vomiting Positive: Myalgia - back, LE Positive: Weakness All Other Systems Reviewed And Are Negative: Yes Physical Exam - Summary Physical Exam Summary: Constitutional: Well-developed, Well-nourished, Alert. (-) Distressed Skin: Warm, Dry HENT: Normocephalic; Atraumatic Eyes: Conjunctiva normal Neck: Musculoskeletal ROM normal neck. (-) JVD, (-) Stridor, (-) Tracheal deviation Cardio: Rhythm regular, rate normal, Heart sounds normal; Intact distal pulses; Radial pulses are 2+ and symmetric. (-) Murmur Pulmonary/Chest wall: Effort normal. (-) Respiratory distress, (-) Wheezes, (-) Rales Abd: Soft, (-) tenderness, (-) Distension, (-) Guarding, (-) Rebound Musculoskeletal: (-) Edema. 4/5 weakness in the LUE. Lymph: (-) Cervical adenopathy Neuro: Alert, Oriented x3 Psych: Mood and affect Normal Triage Information Reviewed: Yes Vital Signs On Initial Exam: Initial Vitals Temp Pulse Resp BP Pulse Ox 97.3 F 90 16 94/72 98 07/25/19 07:37 07/25/19 07:37 07/25/19 07:37 07/25/19 07:37 07/25/19 07:37 Vital Signs Reviewed: Yes Procedures - Sedation Patient Received Moderate/Deep Sedation with Procedure: No Diagnostics - Vital Signs Vital Signs Temp Pulse Resp BP Pulse Ox 07/25/19 07:37 97.3 F 90 16 94/72 98 - Laboratory Result Diagrams: 07/25/19 08:02 07/25/19 08:02 Lab Statement: Any lab studies that have been ordered have been reviewed, and results considered in the medical decision making process. - CT CTA Chest/Abd/Pelv CT Interpretation Completed By: Radiologist Summary of CT Findings: NO AORTIC ANEURYSM OR INTIMAL FLAP TO SUGGEST DISSECTION. THE PULMONARY ARTERY IS ENLARGED COMPARED TO THE AORTA WHICH MAY INDICATE THE PRESENCE OF PULMONARY ARTERIAL HYPERTENSION. ED physician has reviewed this report. - EKG 0732 Cardiac Rate: NL - 95bpm EKG Rhythm: Sinus Rhythm ST Segment: Normal Ectopy: None Summary of EKG Findings: EKG at 0732 shows NSR at 95bpm with prolonged QTc and no ischemia. ED physician has reviewed and interpreted this report. QTc as calculated by cardiology is 512. Chest Pain Course/Dx - Course Course Of Treatment: Patient is here with similar onset chest pain and left- sided weakness. Patient had symptom onset of last night. Patient is overall well-appearing with hemodynamic stability upon arrival. Patient had a CTA of her chest/abdomen/pelvis which showed no evidence of dissection. Patient had a negative d-dimer. Patient had a negative troponin. Patient had an EKG showed no abnormalities. Patient does have left-sided weakness which she says she's had off and on chronically and has seen a neurologist multiple times for it with no known etiology. Patient did have a prolonged QTC on EKG so cardiology was called. They recalculated her QTC at 512. Patient did not need admission for arrhythmia monitoring. This is likely due to patient's Prozac. Encouraged follow-up with her PCP to have that reevaluated and was told not to take any new medications unless a doctor told them. - Diagnoses Provider Diagnoses: Chest wall pain Discharge ED - Sign-Out/Discharge Documenting (check all that apply): Patient Departure - Discharge Plan Condition: Stable Disposition: HOME Prescriptions: Acetaminophen with Codeine [Acetaminophen-Cod #3 Tablet] 1 each PO Q8HR PRN #12 tablet MDD 3 tablets PRN Reason: pain severe Patient Education Materials: Chest Wall Pain (ED) Referrals: Dalton Warner MD [Primary Care Provider] - Additional Instructions: Follow up with your primary care provider to have your QTc re-checked. Take your pain medications as prescribed, but do not take any other medications until your QTc is re-checked. Come back to the emergency department with any new or worsening symptoms. - Billing Disposition and Condition Condition: STABLE Disposition: Home - Attestation Statements Document Initiated by Janine: Yes Documenting Scribe: Nelly Arrington Provider For Whom Janine is Documenting (Include Credential): Elton Montoya MD. Scribe Attestation: Nelly Vargas scribed for Elton Montoya MD. on 07/25/19 at 1249. Scribe Documentation Reviewed: Yes Provider Attestation: The documentation as recorded by the Nelly ni accurately reflects the service I personally performed and the decisions made by Elton hernandez MD. Status of Scribe Document: Viewed
[2019-07-25 08:13] LABS: ABS Basophils 0.1 10^3/ul (0-0.2); ABS Eosinophils 0.1 10^3/ul (0-0.6); ABS Lymphocytes 1.5 10^3/ul (1.0-4.8); ABS Monocytes 0.9 10^3/ul (0-0.8); ABS Neutrophils 11.4 10^3/ul (1.5-7.7); Eosinophil % 0.5 %; Hematocrit 44 % (35-47); Hemoglobin 14.5 g/dL (12.0-16.0); Lymphocyte % 10.7 %; Mean Corpuscular HGB Conc 33 g/dL (31-36); Mean Corpuscular Hemoglobin 30 pg (27-31); Mean Corpuscular Volume 90 fL (80-97); Mean Platelet Volume 8.6 fL (7.4-10.4); Platelet Count 360 10^3/uL (150-450); Red Blood Count 4.83 10^6 /uL (3.70-4.87); Red Cell Distribution Width 13 % (10-15); White Blood Count 13.9 10^3/uL (3.5-10.8)
--- OUTSIDE RECORDS SUMMARY | 2019-07-25 08:22 | XMS REPORT | Summary of Care ---
:1985 Author Organization [facility] Address [address] [facility] [place] [address] Care Team Providers Name Role Phone Dalton Warner Iván Primary Care Provider Reason for Visit (Routine) Status Reason Specialty Diagnoses / Referred By Referred To Procedures Contact Contact Pending Review Infusion Therapy Diagnoses Crohn's disease, unspecified, with other complication Thomason, [facility] Infusion Procedures [place] INFLIXIMAB NOT BIOSIMIL 10MG [place] IV INFUSION THERAPY/PROPHYLAXIS /DX 1ST TO 1 HR [place] IV INFUSION THERAPY PROPHYLAXIS/DX EA HOUR Nhi Miranda NP Center [address] [place] [address] [address] Phone: [place] [phone] Encounter Details Date Type Department Care Team Description 07/02/2019 Hospital Encounter [facility] Infusion Center Outpatient 1 [facility] [place] [id number] Allergies Active Allergy Reactions Severity Noted Date Comments Ks Ibuprofen Other 03/01/2012 Latex Dermatologic Reaction 01/22/2009 Penicillins Hives, GI Reaction 01/22/2009 Reglan Other 12/13/2017 Uncontrolled muscle spasms documented as of this encounter (statuses as of 07/04/2019) Medications Medication Sig Dispensed Refills Start Date End Date Status ondansetron Take 1 Tab by 60 Tab 1 2015 Active (ONDANSETRON) 4 MG Oral mouth EVERY SIX TABLET DISPERSIBLE HOURS NEEDED (nausea). albuterol HFA (VENTOLIN) Take 2 Puffs by 1 Inhaler 2 08/02/2017 Active 108 (90 Base) MCG/ACT inhalation EVERY Inhalation Aero Soln FOUR HOURS NEEDED (wheezing). triamcinolone Apply to 30 g 3 09/04/2018 Active (KENALOG,ARISTOCORT) 0.1 affected areas % Apply externally Cream twice daily as needed topiramate (TOPAMAX) 25 Take 25 mg by 0 Active MG Oral Tab mouth TWICE DAILY. Acetaminophen (TYLENOL) Take 500 mg by 0 Active 325 MG Oral Cap mouth NEEDED. Menthol, Topical by Apply 0 Active Analgesic, (ICY HOT EX) externally route. fluoxetine (PROZAC) 20 Take 1 Cap by 180 Cap 1 02/27/2019 Active MG Oral CapIndications: mouth TWICE Moderate episode of DAILY. recurrent major depressive disorder (HCC) omeprazole (PRILOSEC) 10 Take 10 mg by 0 Active MG Oral CAPSULE DELAYED mouth DAILY. RELEASE cyclobenzaprine Take 1 Tab by 30 Tab 0 03/08/2019 Active (FLEXERIL) 10 MG Oral mouth EVERY TabIndications: BEDTIME. Arthralgia of left temporomandibular joint mupirocin (BACTROBAN) 2 Apply inside 1 Tube 0 05/01/2019 Active % Apply externally both nostrils OintmentIndications: 2-3 times daily Nostril sore for 7 days zolpidem (AMBIEN) 5 MG TAKE 1 TABLET BY 30 Tab 3 05/01/2019 Active Oral TabIndications: MOUTH AT BEDTIME Insomnia, unspecified NEEDED FOR type SLEEP diphenoxylate-atropine TAKE 1 TABLET BY 40 Tab 1 05/15/2019 Active (LOMOTIL) 2.5-0.025 MG MOUTH 4 TIMES A Oral TabIndications: DAY NEEDED Irritable bowel syndrome FOR DIARRHEA with diarrhea mometasone (NASONEX) 50 SPRAY 2 SPRAYS 1 Bottle 5 05/22/2019 Active MCG/ACT Nasal IN EACH NOSTRIL SuspensionIndications: DAILY Acute streptococcal tonsillitis, not specified as recurrent or not Omeprazole delayed rel Take 20 mg by 180 Cap 3 06/12/2019 Active cap 20 MG Oral CAPSULE mouth TWICE DELAYED DAILY. RELEASEIndications: Gastroesophageal reflux disease, esophagitis presence not specified LYRICA 25 MG Oral TAKE 2 CAPSULES 60 Cap 3 06/12/2019 Active CapIndications: BY MOUTH TWICE Arthralgia, unspecified DAILY joint, Myalgia documented as of this encounter (statuses as of 07/04/2019) Active Problems Problem Noted Date Irritable bowel syndrome with diarrhea 08/29/2018 Menorrhagia with irregular cycle 05/26/2017 Major depression, recurrent 10/09/2014 Overview: Selective serotonin receptor inhibitor treatment No therapy Crohn's disease Overview: Dr Aj in past. Now seeing Dr. Bowling Eczema documented as of this encounter (statuses as of 07/04/2019) Resolved Problems Problem Noted Date Resolved Date Current smoker 10/22/2014 02/23/2018 Abdominal pain, unspecified site 09/25/2014 11/05/2014 Prophylactic vaccination against hemophilus influenza type B 06/21/201211/05 (Hib) Back pain 11/05/2014 documented as of this encounter (statuses as of 07/04/2019) Immunizations Name Administration Dates Next Due Influenza (IM) Preservative Free 07/06/2018, 09/03/2015, 09/02/2014, 06/21/2012 Influenza (IM) W/Pres 12/08/2017, 09/16/2016 MMR VACCINE 12/08/2017 PNEUMOCOCCAL POLYSACCHARIDE VACCINE 05/14/2013 TDAP Vaccine 05/14/2013 documented as of this encounter Social History Tobacco Use Types Packs/Day Years Used Date Former Smoker Cigarettes 1 Smokeless Tobacco: Never Used Comments: Quit 12/2017 Alcohol Use Drinks/Week oz/Week Comments No 0 Standard drinks or equivalent 0.0 Sex Assigned at Date Recorded Not on file Job Start Date Occupation Industry Not on file Not on file Not on file Travel History Travel Start Travel End No recent travel history available. documented as of this encounter Last Filed Vital Signs Vital Sign Reading Time Taken Comments Blood Pressure 93/60 07/02/2019 11:15 AM EDT Pulse 80 07/02/2019 11:15 AM EDT Temperature 37.4 07/02/2019 11:15 AM EDT C (99.4 F) Respiratory Rate 16 07/02/2019 11:15 AM EDT Oxygen Saturation - - Inhaled Oxygen Concentration - - Weight 52.8 kg (116 lb 8 oz) 07/02/2019 11:15 AM EDT Height - - Body Mass Index 20.64 05/08/2019 8:19 AM EDT documented in this encounter Plan of Treatment Date Type Specialty Care Team Description 08/27/2019 Appointment Infusion Therapy Health Maintenance Due Date Last Done Comments INFLUENZA VACCINE (#1) 2019 07/06/2018, 12/08/2017, 09/16/2016, Additional history exists DEPRESSION SCREENING 02/27/2020 02/26/2019 COLONOSCOPY SCREENING 02/23/2021 02/23/2018, 02/23/2018, 09/30/2014, Additional history exists PAP SMEAR 08/11/2021 08/11/2018, 05/14/2012 PNEUMOCOCCAL 0-64 YRS Aged Out 05/14/2013 No longer eligible based on patient's age to complete this topic HPV IMMUNIZATION SERIES Aged Out No longer eligible based on patient's age to complete this topic MENINGOCOCCAL VACCINE IMM Aged Out No longer eligible based on patient's age to complete this topic documented as of this encounter Goals Goal Patient Goal Associated Recent Patient-Stated? Author Type Problems Progress Depression Depression No isis Hinton (PHQ-9) TORI Roach total score < 5 Note: This is an individualized treatment (depression) goal for Minnie Cruz: Displayed above is your goal for a depression screening (PHQ-9) score that would indicate good control of your depression. Keep a regular sleep schedule Lifestyle No Marley Hinton FNP Note: This is an individualized lifestyle goal for Minnie Cruz: Please maintain a regular sleep schedule. This may help with some symptoms of depression. Take all prescribed medications as Self-management No Marley Hinton FNP directed Note: This is an individualized self-management goal for Minnie Cruz: Please take all prescribed medications as directed. 1. Do not skip doses. If you cannot afford your medications, talk with your doctor. 2. Use a pill reminder system such as a pill box if needed. Your pharmacist can help you with this. 3. Contact your Pharmacy 5 days before your medication runs out. If you cannot take your medications for any reasons, talk with your doctor. 4. Please bring all of your medication bottles and inhalers (or a list of all your medications/inhalers) with you to every visit. Potential barriers to meeting all of your care plan goals will continue to be addressed on an ongoing basis. documented as of this encounter Procedures Procedure Name Priority Date/Time Associated Comments Diagnosis CBC WITH DIFFERENTIAL Routine 07/02/2019 11:26 Results for this AM EDT procedure are in the results section. C-REACTIVE PROTEIN Routine 07/02/2019 11:26 Results for this AM EDT procedure are in the results section. COMPREHENSIVE Routine 07/02/2019 11:26 Results for this METABOLIC PANEL AM EDT procedure are in the results section. SEDIMENTATION RATE Routine 07/02/2019 11:26 Results for this AM EDT procedure are in the results section. documented in this encounter Results SEDIMENTATION RATE (07/02/2019 11:26 AM EDT) ESR 7 0 - 20 MM/HR [facility] Comment: GROUP LABORATORY Methodology was changed 04/04/19. Please note updated reference range. Specimen Blood - Blood specimen (specimen) Performing Organization Address City/State/Zipcode Phone Number [facility] [address] [place] [address] [phone] COMPREHENSIVE METABOLIC PANEL (07/02/2019 11:26 AM EDT) Sodium 139 134 - 145 mmol/L [facility] Potassium 4.0Comment: 3.5 - 5.1 mmol/L [facility] hemolyzed. LABORATORY Results may be affected. Chloride 110 (H) 98 - 107 mmol/L [facility] CO2 18 (L) 22 - 30 mmol/L [facility] Calcium 9.2 8.3 - 10.1 mg/dl [facility] Albumin 4.7 3.5 - 5.0 g/dl [facility] BUN 8Comment: Slightly 7 - 17 mg/dl [facility] hemolyzed. GROUP Results may be LABORATORY affected. Creatinine 0.7 0.7 - 1.2 mg/dl [facility] Glucose 102 (H) 70 - 99 mg/dl [facility] Total Protein 8.2 6.3 - 8.2 g/dl [facility] Total Bilirubin 0.7 0.0 - 1.1 MG/DL [facility] AST 28Comment: 15 - 46 U/L [facility] GROUP hemolyzed. LABORATORY Results may be affected. ALT 23Comment: 9 - 52 U/L [facility] GROUP hemolyzed. LABORATORY Results may be affected. Alkaline 38 (L)Comment: 40 - 150 U/L [facility] Phosphatase Slightly GROUP hemolyzed. LABORATORY Results may be affected. eGFR >60 See Interpretation [facility] Comment: Below ml/min/1.73ml GROUP Sq LABORATORY Estimated GFR Interpretation: Above 60ml/min/1.73m2 = Normal Renal Function 30-59 ml/min/1.73m2 = Stage 3 Chronic Kidney Disease 15-29 ml/min/1.73m2 = Stage 4 Chronic Kidney Disease Less than 15 ml/min/1.73m2 = Stage 5 Chronic Kidney Disease The GFR value is calculated using the Modification of Diet in Renal Disease ( MDRD) Study Equation which can be found at: https://www.kidney.org/content/vjra-imnqz-tdqlpwry BUN/Creatinine 11 6 - 22 RATIO [facility] LABORATORY Anion Gap 11 3 - 11 mmol/L [facility] A/G Ratio 1.3 0.8 - 2.0 ratio [facility] Specimen Blood - Blood specimen (specimen) Performing Organization Address City/State/Zipcode Phone Number [facility] [address] [facility] [place] [address] CBC WITH DIFFERENTIAL (07/02/2019 11:26 AM EDT) WBC Count 8.76 3.98 - 10.04 K/uL [facility] RBC Count 4.55 3.93 - 5.22 M/UL [facility] Hemoglobin 13.8 11.2 - 15.7 g/dL [facility] Hematocrit 40.7 34.1 - 44.9 % [facility] MCV 89.5 79.4 - 94.8 FL [facility] MCH 30.3 25.6 - 32.2 PG [facility] MCHC 33.9 32.2 - 35.5 g/dL [facility] Platelet Count 317 182 - 369 K/uL [facility] MPV 10.1 9.4 - 12.3 FL [facility] RDW 12.9 11.7 - 14.4 % [facility] Neutrophil % 71.1 34.0 - 71.1 % [facility] Lymphocyte % 22.3 19.3 - 51.7 % [facility] Monocyte % 5.8 4.7 - 12.5 % [facility] Eosinophil % 0.3 (L) 0.7 - 5.8 % [facility] Basophil % 0.3 0.1 - 1.2 % [facility] nRBC % 0.0 0.0 - 0.2 % [facility] Neutrophil # 6.22 (H) 1.56 - 6.13 K/UL [facility] Lymphocyte # 1.95 1.18 - 3.74 K/UL [facility] Monocyte # 0.51 0.24 - 0.86 K/UL [facility] Eosinophil # 0.03 (L) 0.04 - 0.36 K/UL [facility] Basophil # 0.03 0.01 - 0.08 K/UL [facility] Immature Gran % 0.2 0.0 - 0.4 % [facility] Immature Gran # 0.02 0.00 - 0.03 K/uL [facility] NRBC # 0.00 0.00 - 0.12 K/uL [facility] Specimen Blood - Blood specimen (specimen) Performing Organization Address City/[facility] [address]/Zipcode Phone Number [facility] [address] [place] [address] [phone] C-REACTIVE PROTEIN (07/02/2019 11:26 AM EDT) C-Reactive Protein <0.50 <1.00 mg/dl [facility] Specimen Blood - Blood specimen (specimen) Performing Organization Address [facility] [address]/[facility] Phone Number [facility] [address] [place] [address] documented in this encounter Administered Medications Medication Order MAR Action Action Date Dose Rate Site acetaminophen (TYLENOL) tablet Given 07/02/2019 11:35 AM EDT 650 mg 650 mg 650 mg, Oral, X1, 1 dose, First dose (after last reorder) on Tue07/02/19 at 1230 diphenhydrAMINE (BENADRYL) injection 25 mg Given 07/02/2019 11:35 AM EDT 25 mg 25 mg, Intravenous Push, X1, 1 dose, First dose (after last reorder) on Tue07/02/19 at 1230 infliximab (REMICADE) IV mixture 300 mg New Bag 07/02/2019 12:04 PM EDT 300 mg 300 mg, Intravenous, X1, 1 dose, First dose (after last reorder) on Tue07/02/19 at 1230 methylPREDNISolone (SOLU-MEDROL) injection 80 Given 07/02/2019 11:35 AM EDT 80 mg mg 80 mg, Intravenous Push, X1, 1 dose, First dose (after last reorder) on Tue07/02/19 at 1230 documented in this encounter Insurance Payer Benefit Plan / Subscriber ID Effective Dates Phone Address Type Group [place] xxxxxxxx 2019-Present [place] documented as of this encounter
--- OUTSIDE RECORDS SUMMARY | 2019-07-25 08:22 | XMS REPORT | Continuity of Care Document ---
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 [phone] Medicine Problems Description No Information Available Social History Type Date Description Comments Sex Unknown Tobacco Use Start: Unknown End: Former Cigarette Smoker x 11 yrs, quit age 32 Unknown 1-5 Cigarettes Daily Tobacco Use Start: Unknown Never Smoked Cigars Tobacco Use Start: Unknown Never Smoked A Pipe Smokeless Tobacco Never Used Smokeless Tobacco ETOH Use Denies alcohol use Tobacco Use Start: Unknown End: Patient is a former Unknown smoker Smoking Status Reviewed: 06/05/19 Patient is a former smoker Allergies, Adverse Reactions, Alerts Active Allergies Reaction Severity Comments Date Ibuprofen 05/11/2018 Penicillin 05/11/2018 Latex 05/11/2018 Reglan 05/11/2018 Medications Active Medications SIG Qnty Indications Ordering Provider Date Zolpidem Tartrate Take 1 Tablet By Unknown 5mg Mouth AT Bedtime Tablets as Needed For Sleep/Insomnia Fluoxetine HCL Take 1 Capsule By Unknown 20mg Mouth Twice A Day Capsules Ventolin HFA Inhale 2 Puffs By Unknown Mouth Every 4 108(90Base) mcg/Act Hours as Needed Aerosol For Wheezing Mometasone Furoate W[place]ish 2 Sprays In Unknown Nose Daily. 50mcg/Act Suspension Topiramate Walt Rodney MD 50mg Tablets Omeprazole Thomason N.P., 20mg Nhi Capsules Sofie Orlando, 25mg Capsules N.P. Diphenoxylate-Zoe Lackey M.D. ne 2.5-0.025mg Tablets Mupirocin Paddy N.P., 2% Ointment Nhi Immunizations Description No Information Available Vital Signs Date Vital Result Comment 06/05/2019 1:42pm Weight 147.00 lb Weight 66.679 kg Height 63 inches 5'3" Height in cm's 160.0 cm BMI (Body Mass Index) 26.0 kg/m2 05/11/2018 3:20pm Weight 147.00 lb Weight 66.679 kg Height 63 inches 5'3" Height in cm's 160.0 cm BMI (Body Mass Index) 26.0 kg/m2 Results Description No Information Available Procedures Date Code Description Status 06/05/2019 68522 Tympanometry Completed 06/05/2019 26485 Comprehensive Audiogram Completed Medical Devices Description No Information Available Encounters Type Date Location Provider Dx Diagnosis Office Visit 06/05/2019 [place] Mariela Gibbs H92.02 Otalgia, left ear 1:45p 10/10/07 MARLENI M54.2 Cervicalgia Office Visit 05/16/2019 8:45a [place],After 10/10/07 Mariela Mcclellan H92.12 Otorrhea , left MARLENI Gibbs ear H69.82 Other specified disorders of Eustachian tube, left ear Assessments Date Code Description Provider 06/05/2019 H92.02 Otalgia, left ear Mariela Gibbs PA-C 06/05/2019 M54.2 Cervicalgia Mariela Gibbs PA-C 05/16/2019 H92.12 Otorrhea, left ear Mariela Gibbs PA-C 05/16/2019 H69.82 Other specified disorders of Eustachian tube, Mariela Gibbs PA-C left ear Plan of Treatment 06/05/2019 - JERROD Carmichael92.02 Otalgia, left earNew Orders:Physical Therapy - Neck and TMJ, Ordered: 06/05/19M54.2 CervicalgiaNew Orders:Physical Therapy - Neck and TMJ, Ordered: 06/05/19 Functional Status Description No Information Available Mental Status Description No Information Available Referrals Description No Information Available
[2019-07-25 08:28] LABS: ALT 12 U/L (7-52); AST 17 U/L (13-39); Albumin 4.5 g/dL (3.2-5.2); Albumin/Globulin Ratio 1.7 (1-3); Alkaline Phosphatase 42 U/L (34-104); Anion Gap 7 mmol/L (2-11); BUN/Creatinine Ratio 18.2 (8-20); Blood Urea Nitrogen 16 mg/dL (6-24); CO2 Carbon Dioxide 21 mmol/L (22-32); Calcium 9.3 mg/dL (8.6-10.3); Chloride 110 mmol/L (101-111); EGFR African American 90.7 (>60); EGFR Non-African American 74.9 (>60); Globulin 2.7 g/dL (2-4); Glucose 83 mg/dL (70-100); Potassium 3.6 mmol/L (3.5-5.0); Sodium 138 mmol/L (135-145); Total Protein 7.2 g/dL (6.4-8.9)
[2019-07-25 08:35] LABS: HCG Pregnancy < 0.60 mIU/mL
[2019-07-25] MEDS ORDERED: Iohexol 350* (CONTRAST) 500 ML MDV IV ONE (08:36)
[2019-07-25] MEDS ORDERED: HYDROcodone/ACETAMIN 5-325 MG* 1 TAB PO ONE (09:39)
[2019-07-25 10:11] LABS: Urine Appearance Clear; Urine Bilirubin Negative (Negative); Urine Blood Negative (Negative); Urine Color Straw; Urine Glucose Negative (Negative); Urine Ketones Negative (Negative); Urine Nitrite Negative (Negative); Urine Protein Negative (Negative); Urine Urobilinogen Negative (Negative)
[2019-07-25 10:30] VITALS: BP 93/56
== END 2019-07-25 10:29 | disposition home or self-care (01) ==
LOC: ED 07:32
DX: R07.89 Other chest pain (principal); K50.90 Crohn's disease, unspecified, without complications; K21.9 Gastro-esophageal reflux disease without esophagitis; F41.0 Panic disorder [episodic paroxysmal anxiety]; F43.10 Post-traumatic stress disorder, unspecified; Z98.51 Tubal ligation status; Z87.891 Personal history of nicotine dependence; Z79.899 Other long term (current) drug therapy; Z88.0 Allergy status to penicillin; Z88.8 Allergy status to other drugs, medicaments and biological substances; Z88.6 Allergy status to analgesic agent; Z91.040 Latex allergy status
CPT/HCPCS: 36415; 71275; 74174; 80053; 81003; 83735; 84484; 84702; 85025; 85379; 86618; 93005; 99284; Q9967

== ENCOUNTER 2019-09-20 13:39 | Emergency (ER) | payer OTHER ==
[2019-09-20 13:46] VITALS: BP 118/76
--- OUTSIDE RECORDS SUMMARY | 2019-09-20 14:35 | XMS REPORT | Summary of Care ---
:1985 Author Organization [facility] Address [address] [place] [address] Care Team Providers Name Role Phone Dalton Warner Iván Primary Care Provider Reason for Visit (Routine) Status Reason Specialty Diagnoses / Referred By Referred To Procedures Contact Contact Authorized Infusion Therapy Diagnoses Crohn's disease, unspecified, with other complication [facility] Infusion Nhi Miranda NP Center [address] [place] [address] [address] Phone: [place] [phone] [address] Encounter Details Date Type Department Care Team Description 08/27/2019 Hospital Encounter [facility] Outpatient [address] [place] [address] Allergies Active Allergy Reactions Severity Noted Date Comments Ks Ibuprofen Other 03/01/2012 Latex Dermatologic Reaction 01/22/2009 Penicillins Hives, GI Reaction 01/22/2009 Reglan Other 12/13/2017 Uncontrolled muscle spasms documented as of this encounter (statuses as of 08/29/2019) Medications Medication Sig Dispensed Refills Start Date [...] Active Analgesic, (ICY HOT EX) externally route. cyclobenzaprine Take 1 Tab by 30 Tab 0 03/08/2019 Active (FLEXERIL) 10 MG Oral mouth EVERY TabIndications: BEDTIME. Arthralgia of left temporomandibular joint diphenoxylate-atropine TAKE 1 TABLET BY 40 Tab [...] Gastroesophageal reflux disease, esophagitis presence not specified Fluoxetine HCl 40 MG Take 1 Cap by 30 Cap 4 07/26/2019 Active Oral Cap mouth DAILY. zolpidem (AMBIEN) 5 MG Take 1 Tab by 30 Tab 0 08/23/2019 Active Oral TabIndications: mouth EVERY Insomnia, unspecified BEDTIME type NEEDED (insomnia). Max Daily Amount: 5 mg. documented as of this encounter (statuses as of 08/29/2019) Active Problems Problem Noted Date Irritable bowel syndrome with diarrhea 08/29/2018 Menorrhagia with irregular cycle 05/26/2017 Major depression, recurrent 10/09/2014 Overview: Selective serotonin receptor inhibitor treatment No therapy Crohn's disease Overview: Dr Aj in past. Now seeing Dr. Bowling Eczema documented as of this encounter (statuses as of 08/29/2019) Resolved Problems Problem Noted Date Resolved Date Current smoker 10/22/2014 02/23/2018 Abdominal pain, unspecified site 09/25/2014 11/05/2014 Prophylactic vaccination against hemophilus influenza type B 06/21/201211/05 (Hib) Back pain 11/05/2014 documented as of this encounter (statuses as of 08/29/2019) Immunizations Name Administration Dates Next Due Influenza (IM) Preservative Free 07/26/2019, 07/06/2018, 09/03/2015, 09/02/2014, 06/21/2012 Influenza (IM) W/Pres [...] Sign Reading Time Taken Comments Blood Pressure 119/58 08/27/2019 12:39 PM EST Pulse 102 08/27/2019 12:39 PM EST Temperature 36.1 08/27/2019 12:39 PM EST C (96.9 F) Respiratory Rate 16 08/27/2019 12:39 PM EST Oxygen Saturation - - Inhaled Oxygen Concentration - - Weight - - Height - - Body Mass Index - - documented in this encounter Plan of Treatment Date Type Specialty Care Team Description 10/22/2019 Appointment Infusion Therapy Health Maintenance Due Date Last Done Comments DEPRESSION SCREENING 02/27/2020 02/26/2019 COLONOSCOPY SCREENING 02/23/2021 02/23/2018, 02/23/2018, 09/30/2014, Additional history exists PAP SMEAR 08/11/2021 08/11/2018, 05/14/2012 PNEUMOCOCCAL 0-64 YRS Aged Out 05/14/2013 No longer eligible based on patient's age to complete this topic INFLUENZA VACCINE Completed 07/26/2019, 07/06/2018, 12/08/2017, Additional history exists HPV IMMUNIZATION SERIES Aged Out No longer [...] Procedure Name Priority Date/Time Associated Comments Diagnosis COMPREHENSIVE Routine 08/27/2019 12:41 Results for this METABOLIC PANEL PM EST procedure are in the results section. documented in this encounter Results COMPREHENSIVE METABOLIC PANEL (08/27/2019 12:41 PM EST) [facility] Sodium 140 134 - 145 mmol/L [facility] Potassium 3.7 3.5 - 5.1 mmol/L [facility] Chloride 112 (H) 98 - 107 mmol/L [facility] CO2 20 (L) 22 - 30 mmol/L [facility] Calcium 8.8 8.3 - 10.1 mg/dl [facility] Albumin 4.1 3.5 - 5.0 g/dl [facility] BUN 10 7 - 17 mg/dl [facility] Creatinine 0.6 (L) 0.7 - 1.2 mg/dl [facility] Glucose 108 (H) 70 - 99 mg/dl [facility] Total Protein 7.5 6.3 - 8.2 g/dl [facility] Total Bilirubin 0.4 0.0 - 1.1 MG/DL [facility] AST 26 15 - 46 U/L [facility] ALT 22 9 - 52 U/L [facility] Alkaline 46 40 - 150 U/L [facility] Phosphatase [facility] eGFR >60 See Interpretation [facility] Comment: Below ml/min/1.73ml GROUP Estimated GFR Interpretation: Sq LABORATORY Above 60ml/min/1.73m2 = Normal Renal Function 30-59 ml/min/1.73m2 = Stage 3 Chronic Kidney Disease 15-29 ml/min/1.73m2 = Stage 4 Chronic Kidney Disease Less than 15 ml/min/1.73m2 = Stage 5 Chronic Kidney Disease The GFR value is calculated using the Modification of Diet in Renal Disease ( MDRD) Study Equation which can be found at: https://www.kidney.org/content/maru-xxnlk-qqhudxvc BUN/Creatinine 17 6 - 22 RATIO [facility] GROUP LABORATORY Anion Gap 8 3 - 11 mmol/L [facility] A/G Ratio 1.2 0.8 - 2.0 ratio [facility] Specimen Blood - Blood specimen (specimen) Performing Organization Address City/State/Zipcode Phone Number [facility] [address] [place] [address] [phone] documented in this encounter Visit Diagnoses Diagnosis Crohn's disease without complication, unspecified gastrointestinal tract location (HCC) documented in this encounter Administered Medications Medication Order MAR Action Action Date Dose Rate Site acetaminophen (TYLENOL) tablet Given 08/27/2019 12:41 PM EST 650 mg 650 mg 650 mg, Oral, X1, 1 dose, First dose (after last reorder) on Tue08/27/19 at 1340, Give if previous reaction, diphenhydrAMINE (BENADRYL) injection 25 mg Given 08/27/2019 12:42 PM EST 25 mg 25 mg, Intravenous Push, X1, 1 dose, First dose (after last reorder) on Tue08/27/19 at 1340, Give if previous reaction, infliximab (REMICADE) IV mixture 300 mg New Bag 08/27/2019 1:10 PM EST 300 mg 300 mg, Intravenous, X1, 1 dose, First dose (after last reorder) on Tue08/27/19 at 1340, Begin infusion within 3 hours of mixing Dose ordered 330 mg; rounded to 300 mg per policy, methylPREDNISolone (SOLU-MEDROL) injection 80 Given 08/27/2019 12:42 PM EST 80 mg mg 80 mg, Intravenous Push, X1, 1 dose, First dose (after last reorder) on Tue08/27/19 at 1340, Give if previous reaction, documented in this encounter Insurance Payer Benefit Plan / Subscriber ID Effective Dates Phone Address Type Group [facility] xxxxxxxxxxx 2019-Present Sinan documented as of this encounter
--- OUTSIDE RECORDS SUMMARY | 2019-09-20 14:35 | XMS REPORT | Continuity of Care Document ---
:1985 External Reference #:[id number] Author Name Alex Reynoso M.D. (transmitted by agent of provider Shirlene Veronica) Address [address] [place] [address] Care Team Providers Name Role Phone Nancy Kaur MD - Internal Care Team Information Accounting Intern [phone] Medicine Dalton Warner MD - Internal Care Team Information Accounting Intern Medicine Problems Active Problems Provider Date Gastroesophageal reflux [...] Neck pain Darrell Flannery M.D. Onset: 04/25/2015 Social History Type Date Description Comments Sex Unknown Tobacco Use Start: Unknown Currently smokes 1-5 Cigarettes Daily ETOH Use Denies alcohol use Tobacco Use Start: Unknown Patient is a current smoker, smokes every day Recreational Drug Use Denies Drug Use Tobacco Use Start: Unknown Light tobacco smoker (10 or fewer cigarettes/day) Smoking Status Reviewed: 09/07/19 Light tobacco smoker (10 or fewer cigarettes/day) Exercise Type/Frequency Does not exercise Allergies, Adverse Reactions, Alerts Active Allergies Reaction Severity Comments Date Penicillin hives 06/24/2010 Latex 06/24/2010 Ibuprofen 12/21/2010 Reglan uncontrollable muscle spasms 10/19/2018 Medications Active Medications SIG Qnty Indications Ordering Provider Date Topiramate take 1 tablet 270Tablet Walt Rodney, 06/18/2019 50mg by mouth in M.D. Tablets the morning and 2 tablets in the evening Combivent Inhaler 2puffs qid prn 1units 493.90 Roldan Murrieta, 2010 M.DDee Nizatidine take one Unknown 150mg capsule by Capsules mouth twice a day Triamcinolone apply thin Unknown Acetonide film twice 0.1% Cream daily Fluoxetine HCL Take 1 Capsule Unknown 40mg By Mouth Every Capsules Day History Medications Topiramate take 1 in am 270tabs G43.019 Donn Antonio, 04/09/2019 - 50mg and 2 in pm N.P. 06/17/2019 Tablets Medications Administered in Office Medication SIG Qnty Indications Ordering Provider Date Depomedrol 40MG Andrzej Wen M.D. 11/16/2010 Injection Immunizations CPT Code Status Date Vaccine Lot # [id number] Given 08/19/2010 Influenza Virus 3Yrs & Over [id number] Vital Signs Date Vital Result Comment 09/07/2019 12:08pm Height 63 inches 5'3" Weight 122.50 lb Heart Rate 99 /min BP Systolic Sitting 110 mmHg BP Diastolic Sitting 62 mmHg Body Temperature 97.6 F Pain Level 6 O2 % BldC Oximetry 99 % BMI (Body Mass Index) 21.7 kg/m2 08/23/2019 2:07pm Height 63 inches 5'3" Weight 115.00 lb Heart Rate 112 /min BP Systolic 100 mmHg BP Diastolic 62 mmHg BMI (Body Mass Index) 20.4 kg/m2 Results Test Acquired Facility Test Result H/L Range Note Date Laboratory 08/14/2019 [facility] Thyroperoxidase AB 0.20 IU/mL Normal <9 1 test finding [place], [place] [id number] [phone] T3 Free 2.80 pg/mL Normal 2.5-3.9 2 Cardiolipin 08/14/2019 [facility] Phospholipid Ab < 9.4 MPL 3 Igg/Igm IgM, [place] [address] [phone] Phospholipid Ab IgG < 9.4 GPL 4 Protein 08/14/2019 [facility] Total 7.4 g/dL 6.3 - Electrophoresis Protein(Pep) 7.9 [place] [address] [phone] Albumin 3.7 g/dL 3.4-4.7 Alpha-1 Globulin 0.2 g/dL 0.1-0.3 Alpha-2 Globulin 1.1 g/dL Abnormal 0.6-1.0 Beta Globulin 1.1 g/dL 0.7-1.2 Gamma Globulin 1.3 g/dL 0.6-1.6 Albumin/Globulin Ratio 1.01 Impression See Comment 5 Laboratory test 08/14/2019 [facility] Vitamin D 27.8 ng/mL Normal 20-50 6 finding [place] Total 25(Oh) [place], [place] [id number] [phone] Vitamin B12 And 08/14/2019 [facility] Vitamin B12 373 pg/mL Normal 180-914 7 [place] [address] [phone] Folic Acid (Folate) 5.69 ng/mL >3.99 8 Hla B27 08/14/2019 [facility] Hla B27 Positive [address] [place], [place] [address] [phone] Hla B27 Interp See Comment 10 Laboratory test 08/14/2019 [facility] Angiotensin 25 U/L 16 - 85 11 [place] [address] Enzyme [phone] Anca AB Ser If 08/14/2019 [facility] C-Anca Negative Negative [place], [place] [address] [phone] P-Anca Positive Abnormal Negative 12 Laboratory test 08/14/2019 [facility] Anti Nuclear 1.0 U 13 [place] [address] [phone] Ssa/SSB Abs Igg 08/14/2019 [facility] SS-A/Ro Antibody <0.2 U [address] [place] [address] [phone] SS-B/La Antibody <0.2 U 15 Laboratory test 08/14/2019 [facility] C Reactive 1.51 mg/L Normal <8.01 [address] [place] [address] [place] [address] [phone] Cyclic Citrullinated Pep Igg <15.6 U 17 Creatine Kinase(CK) 50 U/L Normal 10-223 18 1 Please check labs and xrays and echo this week 2 Please check labs and xrays and echo this week 3 REFERENCE VALUE <15.0 (Negative) 4 REFERENCE VALUE <15.0 (Negative) Test Performed by: [place] [address] [employer] Operator: Anant Cordero M.D. Ph.D.; CLIA# [id number] 5 RESULT: No apparent monoclonal protein on serum electrophoresis. Test Performed by: [place] [address] [employer] Operator: Anant Cordero M.D. Ph.D.; CLIA# [id number] 6 Total 25-Hydroxyvitamin D2 and D3 (25-OH-VitD) <10 ng/mL (severe deficiency) 10-19 ng/mL (mild to moderate deficiency) 20-50 ng/mL (optimum levels) 51-80 ng/mL (increased risk of hypercalciuria) >80 ng/mL (toxicity possible) 7 Normal Range 180 to 914 Indeterminate Range 145 to 180 Deficient Range <145 8 Please check labs and xrays and echo this week 9 REFERENCE VALUE Not Applicable 10 HLA-B27 antigen was detected. Approximately 8% of the normal population carries the HLA-B27 antigen. HLA-B27 is present in approximately 89% of patients with ankylosing spondylitis, 79% of patients with Niko's syndrome and 42% of patients with juvenile rheumatoid arthritis. However, lacking other data, it is not diagnostic for these disorders. This test does not differentiate B27 alleles. i.e. B*27:05, B*27:06, etc. ADDITIONAL INFORMATION Method: Flow Cytometry Test Performed by: [place] [address] [employer] Operator: Anant Cordero M.D. Ph.D.; CLIA# [id number] 11 Test Performed by: [place] [address] [employer] Operator: Anant Cordero M.D. Ph.D.; CLIA# [id number] 12 Positive for pANCA pattern by immunofluorescence. Suggest further testing for anti-myeloperoxidase (anti-MPO) antibodies, if clinically indicated. ADDITIONAL INFORMATION This test was developed and its performance characteristics determined by [facility] in a manner consistent with CLIA requirements. This test has not been cleared or approved by the U.S. Food and Drug Administration. Test Performed by: [facility] [place] [address] [employer] Operator: Anant Cordero M.D. Ph.D.; CLIA# [id number] 13 REFERENCE VALUE <=1.0 (Negative) Test Performed by: [place] [address] [employer] Operator: Anant Cordero M.D. Ph.D.; CLIA# [id number] 14 REFERENCE VALUE <1.0 (Negative) 15 REFERENCE VALUE <1.0 (Negative) Test Performed by: [place] [address] [employer] Operator: Anant Cordero M.D. Ph.D.; CLIA# [id number] 16 Please check labs and xrays and echo this week 17 REFERENCE VALUE <20.0 (Negative) Test Performed by: [place] [address] [employer] Operator: Anant Cordero M.D. Ph.D.; CLIA# [id number] 18 Please check labs and xrays and echo this week Procedures Date Code Description Status 08/23/2019 03822 ECHO Transthoracic, Real-Time 2D With Doppler And Color Completed Flow 08/23/2019 27140 ECHO Transthoracic, Real-Time 2D With Doppler And Color Completed Flow 08/01/2019 64640 Polysomnography Sleep Staging 4+ Parameters Completed 04/19/2019 44923 Event Monitor/Phys Review/Interp. Completed 04/18/2019 97882 EEG Recording Awake & Asleep Completed 05/27/2011 97922267 Colonoscopy Completed Medical Devices Description No Information Available Encounters Type Date Location Provider Dx Diagnosis Office Visit 08/23/2019 [facility] Donn Antonio, G43.019 Migraine w/o aura, 2:30p Services Of Director Maternal Child N.P. 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 G43.009 Migraine w/o aura, not intractable, w/o status migrainosus R53.83 Other fatigue Office Visit 04/09/2019 [place] Walt G43.019 Migraine w/o 3:45p Neurolog[facility] Micah Rodney aura, [facility] intractable, without status migrainosus R55 Syncope and collapse Assessments Date Code Description Provider 09/07/2019 M54.5 Low back pain Alex Reynoso M.D. 09/07/2019 M54.6 Pain in thoracic spine Alex Reynoso M.D. 09/07/2019 R76.0 Raised antibody titer Alex Reynoso M.D. 09/07/2019 M79.10 Myalgia, unspecified site Alex Reynoso M.D. 08/23/2019 G43.019 Migraine without aura, intractable, Donn Antonio, N.P. without status migrainos 08/23/2019 I27.20 Pulmonary hypertension, unspecified Bob Mason M.D. 08/23/2019 J98.4 Other disorders of lung Traveling ECHO 2 08/23/2019 I27.20 Pulmonary hypertension, unspecified Traveling ECHO 2 08/23/2019 F17.210 Nicotine dependence, cigarettes, Donn Antonio, N.P. uncomplicated 08/23/2019 R56.9 Unspecified convulsions Donn Antonio, N.P. 08/13/2019 M35.01 Sicca syndrome with keratoconjunctivitis Alex Reynoso M.D. 08/13/2019 M54.5 Low back pain Alex Reynoso M.D. 08/13/2019 M54.6 Pain in thoracic spine Alex Reynoso M.D. 08/13/2019 J98.4 Other disorders of lung Alex Reynoso M.D. 08/13/2019 R20.8 Other disturbances of skin sensation Alex Reynoso M.D. 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 uncomplicated 08/01/2019 G47.33 Obstructive sleep apnea (adult) Jovita Cheng MD (pediatric) 05/21/2019 M54.2 Cervicalgia Donn Antonio, N.P. 05/21/2019 G43.009 Migraine without aura, not intractable, Donn Antonio, N.P. without status migra 05/21/2019 R53.83 Other fatigue Donn Antonio N.P. 04/19/2019 R55 Syncope and collapse Nanda Brothers M.D. 04/18/2019 R55 Syncope and collapse Jack Castillo M.D. 04/09/2019 G43.019 Migraine without aura, intractable, Walt Rodney M.D. without status migrainos 04/09/2019 R55 Syncope and collapse Walt Rodney M.D. Plan of Treatment Future Appointment(s):10/08/2019 3:30 pm - Donn Antonio N.PDee at [place] [facility]09/07/2019 - Aelx Reynoso M.D.M54.5 Low back painM54.6 Pain in thoracic wanlkL51.0 Raised antibody bxylkT34.10 Myalgia, unspecified siteReferral:Navya Hartley FNP-C, Family/DIVERSITY INTERN Functional Status Description No Information Available Mental Status Description No Information Available Referrals Refer to Dr Reason for Referral Status Appt Date Navya Hartley FNP-C Please evaluate fatigue and myalgias, Created history of chronic pain and inflammatory bowel disease; assess for eligibility of medical marijuana [address], [place] [address] [phone] Jovita Cheng MD Sent [address] [place] [address] [phone] Nanda Brothers MD 30 DAY EVENT MONITOR Sent [address] [place] [address] [phone]
--- OUTSIDE RECORDS SUMMARY | 2019-09-20 14:35 | XMS REPORT | Summary of Care ---
:1985 Author Organization [facility] Address [address] [place] [address] Care Team Providers Name Role Phone Dalton Warner Primary Care Provider Reason for Visit Reason Comments ER F/U Patient was seen yesterday at [facility] for chest pains all tests negative , patient told that it was reaction to prozac. Encounter Details Date Type Department Care Team Description 07/26/2019 Office Visit [place] [facility] Dalton Warner, Acute chest wall pain (Primary Dx); Medicine Long QT interval; [address] [facility] Severe episode of recurrent major depressive disorder, without psychotic features (HCC); [place] [address] [place] [address] Night terrors; [phone] Panic attacks; Insurance coverage problems Allergies Active Allergy Reactions Severity Noted Date Comments Ks Ibuprofen Other 03/01/2012 Latex Dermatologic Reaction 01/22/2009 Penicillins Hives, GI Reaction 01/22/2009 Reglan Other 12/13/2017 Uncontrolled muscle spasms documented as of this encounter (statuses as of 07/26/2019) Medications Medication Sig Dispensed Refills Start End Date Status Date ondansetron Take 1 Tab by 60 Tab 1 Active (ONDANSETRON) 4 MG mouth EVERY 6 Oral TABLET SIX HOURS DISPERSIBLE NEEDED (nausea). albuterol HFA Take 2 Puffs 1 Inhaler 2 Active (VENTOLIN) 108 (90 by inhalation 7 Base) MCG/ACT EVERY FOUR Inhalation Aero Soln HOURS NEEDED (wheezing). triamcinolone Apply to 30 g 3 Active (KENALOG,ARISTOCORT) affected areas 8 0.1 % Apply twice daily as externally Cream needed topiramate (TOPAMAX) Take 25 mg by 0 Active 25 MG Oral Tab mouth TWICE DAILY. Acetaminophen Take 500 mg by 0 Active (TYLENOL) 325 MG Oral mouth Cap NEEDED. Menthol, Topical by Apply 0 Active Analgesic, (ICY HOT externally EX) route. cyclobenzaprine Take 1 Tab by 30 Tab 0 Active (FLEXERIL) 10 MG Oral mouth EVERY 9 TabIndications: BEDTIME. Arthralgia of left temporomandibular joint mupirocin (BACTROBAN) Apply inside 1 Tube 0 Active 2 % Apply externally both nostrils 9 OintmentIndications: 2-3 times Nostril sore daily for 7 days zolpidem (AMBIEN) 5 TAKE 1 TABLET 30 Tab 3 Active MG Oral BY MOUTH AT 9 TabIndications: BEDTIME Insomnia, unspecified NEEDED FOR type SLEEP diphenoxylate-atropin TAKE 1 TABLET 40 Tab 1 Active e (LOMOTIL) 2.5-0.025 BY MOUTH 4 9 MG Oral TIMES A DAY TabIndications: NEEDED FOR Irritable bowel DIARRHEA syndrome with diarrhea mometasone (NASONEX) SPRAY 2 SPRAYS 1 Bottle 5 Active 50 MCG/ACT Nasal IN EACH 9 SuspensionIndications NOSTRIL DAILY : Acute streptococcal tonsillitis, not specified as recurrent or not Omeprazole delayed Take 20 mg by 180 Cap 3 Active rel cap 20 MG Oral mouth TWICE 9 CAPSULE DELAYED DAILY. RELEASEIndications: Gastroesophageal reflux disease, esophagitis presence not specified diclofenac (VOLTAREN) Take 1 Tab by 30 Tab 5 Active 50 MG Oral Tab EC mouth THREE 9 TIMES DAILY BEFORE MEALS. cyclobenzaprine Take 1 Tab by 30 Tab 5 Active (FLEXERIL) 10 MG Oral mouth EVERY 9 Tab BEDTIME. Fluoxetine HCl 40 MG Take 1 Cap by 30 Cap 4 Active Oral Cap mouth DAILY. 9 fluoxetine (PROZAC) Take 1 Cap by 180 Cap 1 07/26/20 Discontinued 20 MG Oral mouth TWICE 9 19 (Provider CapIndications: DAILY. Discontinued) Moderate episode of recurrent major depressive disorder (HCC) omeprazole (PRILOSEC) Take 10 mg by 0 07/26/20 Discontinued 10 MG Oral CAPSULE mouth DAILY. 19 DELAYED RELEASE LYRICA 25 MG Oral TAKE 2 60 Cap 3 07/26/20 Discontinued CapIndications: CAPSULES BY 9 19 (Provider Arthralgia, MOUTH TWICE Discontinued) unspecified joint, DAILY Myalgia documented as of this encounter (statuses as of 07/26/2019) Active Problems Problem Noted Date Irritable bowel syndrome with diarrhea 08/29/2018 Menorrhagia with irregular cycle 05/26/2017 Major depression, recurrent 10/09/2014 Overview: Selective serotonin receptor inhibitor treatment No therapy Crohn's disease Overview: Dr Aj in past. Now seeing Dr. Bowling Eczema documented as of this encounter (statuses as of 07/26/2019) Resolved Problems Problem Noted Date Resolved Date Current smoker 10/22/2014 02/23/2018 Abdominal pain, unspecified site 09/25/2014 11/05/2014 Prophylactic vaccination against hemophilus influenza type B 06/21/201211/05 (Hib) Back pain 11/05/2014 documented as of this encounter (statuses as of 07/26/2019) Immunizations Name Administration Dates Next Due Influenza [...] of this encounter Last Filed Vital Signs Not on filedocumented in this encounter Patient Instructions Patient InstructionsDalton Warner MD - 07/26/2019 1:20 PM EDTECG is normal Use diclofenac three times daily With food ten day and cyclobenzaprine at bedtime for muscle relaxer Increase fluoxitene 40 mg once daily Follow up Marley REYES or [place] mid August documented in this encounter Progress Notes Dalton Warner MD - 07/26/2019 1:20 PM EDT PATIENT: Minnie Cruz : 1985 DATE OF SERVICE: 07/26/2019 CHIEF COMPLAINT: Chief Complaint Patient presents with ER F/U Patient was seen yesterday at [facility] for chest pains all tests negative, patient told that it was reaction to prozac. Subjective HISTORY OF PRESENT ILLNESS: Minnie Cruz is a 33-y.o. female. HPI Here for follow up to [facility] emergency room visit yeserday for sudden onset sharp knife like left sided chest pain under the breat radiating into the left subscapular region it came on out of the blue and was 9/10 it lasted several hours and was worse with breathing or movement ER eval cta chest negative and telemetry and blood work negative ECG no ischemic changes and QTc was 490 She was advised by ER MD to return to office rama for re evaluation of QTc She was given tylenol #3 and told that fluoxitene may have caused the chest pain She denies cough or cardiovascular symptoms She denies history of arrythmia or family history of arrythmia She notes 6 months of daily increased anxiety and panic attacks most days She is on fluoxitene 20 mg daily and she feels increasing depression and blue mood most days she denies drug or alcohol abuse no tobacco use Patient Active Problem List Diagnosis Crohn's disease (HCC) Eczema Major depression, recurrent (HCC) Menorrhagia with irregular cycle Irritable bowel syndrome with diarrhea Family History Problem Relation Age of Onset Diabetes Maternal Grandmother Cancer Maternal Grandmother Arthritis Mother RA Cancer Mother h/o breast cancer No Known Problems Brother No Known Problems Brother Current Outpatient Medications Medication Sig Acetaminophen (TYLENOL) 325 MG Oral Cap Take 500 mg by mouth NEEDED. albuterol HFA (VENTOLIN) 108 (90 Base) MCG/ACT Inhalation Aero Soln Take 2 Puffs by inhalation EVERY FOUR HOURS NEEDED (wheezing). cyclobenzaprine (FLEXERIL) 10 MG Oral Tab Take 1 Tab by mouth EVERY BEDTIME. cyclobenzaprine (FLEXERIL) 10 MG Oral Tab Take 1 Tab by mouth EVERY BEDTIME. diclofenac (VOLTAREN) 50 MG Oral Tab EC Take 1 Tab by mouth THREE TIMES DAILY BEFORE MEALS. diphenoxylate-atropine (LOMOTIL) 2.5-0.025 MG Oral Tab TAKE 1 TABLET BY MOUTH 4 TIMES A DAY NEEDED FOR DIARRHEA Fluoxetine HCl 40 MG Oral Cap Take 1 Cap by mouth DAILY. Menthol, Topical Analgesic, (ICY HOT EX) by Apply externally route. mometasone (NASONEX) 50 MCG/ACT Nasal Suspension SPRAY 2 SPRAYS IN EACH NOSTRIL DAILY mupirocin (BACTROBAN) 2 % Apply externally Ointment Apply inside both nostrils 2-3 times daily for 7 days Omeprazole delayed rel cap 20 MG Oral CAPSULE DELAYED RELEASE Take 20 mg by mouth TWICE DAILY. ondansetron (ONDANSETRON) 4 MG Oral TABLET DISPERSIBLE Take 1 Tab by mouth EVERY SIX HOURS ASNEEDED (nausea). topiramate (TOPAMAX) 25 MG Oral Tab Take 25 mg by mouth TWICE DAILY. triamcinolone (KENALOG,ARISTOCORT) 0.1 % Apply externally Cream Apply to affected areas twicedaily as needed zolpidem (AMBIEN) 5 MG Oral Tab TAKE 1 TABLET BY MOUTH AT BEDTIME NEEDED FOR SLEEP No current facility-administered medications for this visit. Allergies Allergen Reactions Ibuprofen [Ks Ibuprofen] Other Latex Dermatologic Reaction Penicillins Hives and GI Reaction Reglan Other Uncontrolled muscle spasms Social History Socioeconomic History Marital status: Spouse name: Not on file Number of children: Not on file Years of education: Not on file Highest education level: Not on file Occupational History Not on file Social Needs Financial resource strain: Not on file Food insecurity: Worry: Not on file Inability: Not on file Transportation needs: Medical: Not on file Non-medical: Not on file Tobacco Use Smoking status: Former Smoker Packs/day: 1.00 Types: Cigarettes Smokeless tobacco: Never Used Tobacco comment: Quit 12/2017 Substance and Sexual Activity Alcohol use: No Alcohol/week: 0.0 standard drinks Drug use: No Sexual activity: Yes Partners: Male control/protection: Surgical Lifestyle Physical activity: Days per week: Not on file Minutes per session: Not on file Stress: Not on file Relationships Social connections: Talks on phone: Not on file Gets together: Not on file Attends congregational service: Not on file Active member of club or organization: Not on file Attends meetings of clubs or organizations: Not on file Relationship status: Not on file Intimate partner violence: Fear of current or ex partner: Not on file Emotionally abused: Not on file Physically abused: Not on file Forced sexual activity: Not on file Other Topics Concern Back Care Not Asked Bike Helmet Not Asked Blood Transfusions Not Asked Caffeine Concern Not Asked Exercise Not Asked Hobby Hazards Not Asked International Travel Not Asked Service Not Asked Occupational Exposure Not Asked Seat Belt Not Asked Self-Exams Not Asked Sleep Concern Not Asked Special Diet Not Asked Stress Concern Not Asked Weight Concern Not Asked Social History Narrative 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 She lost health insurance has no current insurance now will get evangelina in August She has lost weight Wt Readings from Last 3 Encounters: 07/02/19 116 lb 8 oz (52.8 kg) 05/08/19 125 lb (56.7 kg) 05/05/19 121 lb 14.4 oz (55.3 kg) Objective PHYSICAL EXAM: VITALS: There were no vitals taken for this visit. There is no height or weight on file to calculate BMI. Physical Exam Mental Status: depressed mood, affect appropriate to mood, anxious, good insight and no suicidal ideation PHQ-9 score is: 12 no suicidal ideation GLADYS 7 Score (generalized anxiety disorder) is: 14/21 . No chest wall rash or deformity focal chest wall tenderness left chest under breast at 5-7 rib level S1 and S2 normal, no murmurs, clicks, gallops or rubs. Regular rate and rhythm. Chest is clear; no wheezes or rales. No edema or JVD. ECG no ischemic changes qtc is 470 this is upper limit normal for post pubescent females ASSESSMENT / IMPRESSION: ICD-9-CM ICD-10-CM 1. Acute chest wall pain reassurance muscular short course non steroidal anti- inflammatory medications and cyclobenzaprine muscle relaxer and moist heat stop tylenol #3 786.52 R07.89 2. Long QT interval resolved reassurance 794.31 R94.31 AMBULATORY 12 LEAD EKG (GLOBAL) 3. Severe episode of recurrent major depressive disorder, without psychotic features (HCC) increase fluoxitene 40 mg 296.33 F33.2 4. Night terrors 307.46 F51.4 5. Panic attacks 300.01 F41.0 6. Insurance coverage problems V60.89 Z59.8 I spent 40 minutes with the patient, greater than half of this time in direct face to face counseling regarding the condition and the plan of care. Patient Instructions ECG is normal Use diclofenac three times daily With food ten day and cyclobenzaprine at bedtime for muscle relaxer Increase fluoxitene 40 mg once daily Follow up Marley REYES or [place] mid August Dalton Warner MD 07/26/2019 14:25 documented in this encounter Plan of Treatment Date Type Specialty Care Team Description 08/23/2019 Office Visit Family Practice Chapis Biswas PA-C [address] [place] [address] [phone] 08/27/2019 Appointment Infusion Therapy Name Type Priority Associated Diagnoses Order Schedule AMBULATORY 12 LEAD EKG EKG Routine Long QT interval Ordered: 07/26/2019 (GLOBAL) Health Maintenance Due Date Last Done Comments [...] ongoing basis. documented as of this encounter Results Not on filedocumented in this encounter Visit Diagnoses Diagnosis Acute chest wall pain - Primary Painful respiration Long QT interval Nonspecific abnormal electrocardiogram (ECG) (EKG) Severe episode of recurrent major depressive disorder, without psychotic features (HCC) Night terrors Sleep arousal disorder Panic attacks Panic disorder without agoraphobia Insurance coverage problems Other specified housing or economic circumstances documented in this encounter Insurance Payer Benefit Plan / Subscriber ID Effective Dates Phone Address Type Group [place] xxxxxxxx 2019-Present Medicaid [place] documented as of this encounter
--- OUTSIDE RECORDS SUMMARY | 2019-09-20 14:35 | XMS REPORT | Continuity of Care Document ---
:1985 External Reference #:[id number] Author Name Donn Antonio N.P. (transmitted by agent of provider Dianne Sales) Address [address], [place] [address] Care Team Providers Name Role Phone Nancy Kaur MD - Internal Care Team Information [facility] Dalton Warner MD - Internal Care Team Information [facility] Problems Active Problems Provider Date Gastroesophageal [...] (10 or fewer cigarettes/day) Smoking Status Reviewed: 08/23/19 Light tobacco smoker (10 or fewer cigarettes/day) [...] Roldan Murrieta, 2008 M.D. Prozac one twice Unknown 10mg Capsules daily Nizatidine take one Unknown 150mg capsule by Capsules mouth twice a day Triamcinolone apply thin Unknown Acetonide film twice 0.1% Cream daily History Medications Topiramate take 1 in am 270tabs G43.019 Dnon Paco, 04/09/2019 - 50mg and 2 in pm N.P. 06/17/2019 Tablets Medications Administered in Office Medication SIG Qnty Indications Ordering Provider Date Depomedrol 40MG Andrzej Wen M.D. 11/16/2010 Injection Immunizations CPT Code Status Date Vaccine Lot # [id number] Given 08/19/2010 Influenza Virus 3Yrs & Over [id number] Vital Signs Date Vital Result Comment 08/23/2019 2:07pm Height 63 inches 5'3" Weight 115.00 lb Heart Rate 112 /min BP Systolic 100 mmHg BP Diastolic 62 mmHg BMI (Body Mass Index) 20.4 kg/m2 08/13/2019 11:20am Height 63 inches 5'3" Weight 124.00 lb Heart Rate 89 /min BP Systolic Sitting 95 mmHg BP Diastolic Sitting 65 mmHg Respiratory Rate 16 /min Body Temperature 99.2 F Pain Level 5 O2 % BldC Oximetry 98 % BMI (Body Mass Index) 22.0 kg/m2 Results Test Acquired Date Facility Test Result H/L Range Note Laboratory test 08/14/2019 [facility] C Reactive 1.51 mg/L Normal <8.01 [address] [place] [address] [phone] Cyclic Citrullinated Pep Igg <15.6 U 2 Creatine Kinase(CK) 50 U/L Normal 10-223 3 Ssa/SSB Abs Igg 08/14/2019 [facility] SS-A/Ro Antibody <0.[address] [place], [place] [address] [phone] SS-B/La Antibody <0.2 U 5 Laboratory test 08/14/2019 [facility] Anti Nuclear 1.0 U [address] [place] [address] [phone] Anca AB Ser If 08/14/2019 [facility] C-Anca Negative Negative [address] [place], [place] [address] [phone] P-Anca Positive Abnormal Negative 7 Laboratory test 08/14/2019 [facility] Angiotensin 25 U/L 16 - [address] [place] [address] [phone] Hla B27 08/14/2019 [facility] Hla B27 Positive [address] [place] [address] [phone] Hla B27 Interp See Comment 10 Vitamin B12 08/14/2019 [facility] Vitamin B12 373 pg/mL Normal 180-[address] [place] [address] [phone] Folic Acid (Folate) 5.69 ng/mL >3.99 12 Laboratory test 08/14/2019 [facility] Vitamin D 27.8 Normal 20 -[address] Total ng/[place] [address] 25(Oh) [phone] Protein 08/14/2019 [facility] Total 7.4 g/dL 6.3 - Electrophoresis [address] Protein(Pep 7.9 [place] [address] ) [phone] Albumin 3.7 g/dL 3.4-4.7 Alpha-1 Globulin 0.2 g/dL 0.1-0.3 Alpha-2 Globulin 1.1 g/dL Abnormal 0.6-1.0 Beta Globulin 1.1 g/dL 0.7-1.2 Gamma Globulin 1.3 g/dL 0.6-1.6 Albumin/Globulin Ratio 1.01 Impression See Comment 14 Cardiolipin 08/14/2019 [facility] Phospholipid Ab < 9.4 MPL 15 Igg/Igm [address] [facility] IgM, [place] [address] [phone] Phospholipid Ab IgG < 9.4 GPL 16 Laboratory test 08/14/2019 [facility] Thyroperoxidase AB 0.20 Normal <9 17 finding [address] [facility] IU/[place] [address] [phone] T3 Free 2.80 pg/mL Normal 2.5-3.9 18 1 Please check labs and xrays and echo this week 2 REFERENCE VALUE <20.0 (Negative) Test Performed by: [place] [address] Chicken Buyer: Anant Cordero M.D. Ph.D.; CLIA# [id number] 3 Please check labs and xrays and echo this week 4 REFERENCE VALUE <1.0 (Negative) 5 REFERENCE VALUE <1.0 (Negative) Test Performed by: [facility] [place] [address] Chicken Buyer: Anant Cordero M.D. Ph.D.; CLIA# [id number] 6 REFERENCE VALUE <=1.0 (Negative) Test Performed by: [place] [address] Chicken Buyer: Anant Cordero M.D. Ph.D.; CLIA# [id number] 7 Positive for pANCA pattern by immunofluorescence. Suggest further testing for anti-myeloperoxidase (anti-MPO) antibodies, if clinically indicated. ADDITIONAL INFORMATION This test was developed and its performance characteristics determined by [facility] in a manner consistent with CLIA requirements. This test has not been cleared or approved by the U.S. Food and Drug Administration. Test Performed by: [facility] [address] [place] [address] Chicken Buyer: Anant Cordero M.D. Ph.D.; CLIA# [id number] 8 Test Performed by: [facility] - [address] [address] Chicken Buyer: Anant Cordero M.D. Ph.D.; CLIA# [id number] 9 REFERENCE VALUE Not Applicable 10 HLA-B27 [...] INFORMATION Method: Flow Cytometry Test Performed by: [address] [address] Chicken Buyer: Anant Cordero M.D. Ph.D.; CLIA# [id number] 11 Normal Range 180 to 914 Indeterminate Range 145 to 180 Deficient Range <145 12 Please check labs and xrays and echo this week 13 Total 25-Hydroxyvitamin D2 and D3 (25-OH-VitD) <10 ng/mL (severe deficiency) 10-19 ng/mL (mild to moderate deficiency) 20-50 ng/mL (optimum levels) 51-80 ng/mL (increased risk of hypercalciuria) >80 ng/mL (toxicity possible) 14 RESULT: No apparent monoclonal protein on serum electrophoresis. Test Performed by: [facility] [place] [address] Chicken Buyer: Anant Cordero M.D. Ph.D.; CLIA# [id number] 15 REFERENCE VALUE <15.0 (Negative) 16 REFERENCE VALUE <15.0 (Negative) Test Performed by: [facility] [place] [address] Chicken Buyer: Anant Cordero M.D. Ph.D.; CLIA# [id number] 17 Please check labs and xrays and echo this week 18 Please check labs and xrays and echo this week Procedures Date Code Description Status 08/23/2019 36181 ECHO Transthoracic, Real-Time 2D With Doppler And Color Completed Flow 08/01/2019 26320 Polysomnography Sleep Staging 4+ Parameters Completed 04/19/2019 90615 Event Monitor/Phys Review/Interp. Completed 04/18/2019 06198 EEG Recording Awake & Asleep Completed 05/27/2011 19331534 Colonoscopy Completed Medical Devices Description No Information Available Encounters Type Date Location Provider Dx Diagnosis Office Visit 05/21/2019 [facility] Donn Antonio, M54.2 Cervicalgia 8:00a [facility] N.P. G43.009 Migraine w/o aura, not intractable, w/o status migrainosus R53.83 Other fatigue Office Visit 04/09/2019 Samara Godoy G43.019 Migraine w/o 3:45p Neurologic Micah Rodney aura, [facility] intractable, without status migrainosus R55 Syncope and collapse Assessments Date Code Description Provider 08/23/2019 G43.019 Migraine without aura, intractable, without Donntiffanie Antonio, N.P. status migrainos 08/23/2019 J98.4 Other disorders of lung Traveling ECHO 2 08/23/2019 F17.210 Nicotine dependence, [...] skin sensation Alex Reynoso M.D. 08/13/2019 Z79.52 [facility] (current) use of systemic Alex Reynoso M.D. steroids 08/13/2019 F17.210 Nicotine dependence, cigarettes, Alex Reynoso M.D. uncomplicated 08/01/2019 G47.33 Obstructive sleep apnea (adult) (pediatric) Jovita Cheng MD 05/21/2019 M54.2 Cervicalgia Donn Antonio, N.P. 05/21/2019 G43.009 Migraine without aura, not intractable, Donn Antonio, N.P. without status migra 05/21/2019 R53.83 Other fatigue Donn Antonio, N.P. 04/19/2019 R55 Syncope and collapse Nanda Brothers M.D. 04/18/2019 R55 Syncope and collapse Jack Castillo M.D. 04/09/2019 G43.019 Migraine without aura, intractable, without Walt Rodney M.D. status migrainos 04/09/2019 R55 Syncope and collapse Walt Rodney M.D. Plan of Treatment Future Appointment(s):10/08/2019 3:30 pm - Donn Antonio N.PDee at [facility]09/07/2019 12:00 pm - Alex Reynoso M.D. at [facility]08/23/2019 - Donn Antonio N.P.G43.019 Migraine without aura, intractable, without status migrainosFollow up:6-6ttyazE61.210 Nicotine dependence, cigarettes, jkvrgxoxmbqirR84.9 Unspecified convulsionsNew Orders:EEG, 72 Hour Ambulatory, Ordered: 08/23/19 Functional Status Description No Information Available Mental Status Description No Information Available Referrals Refer to Dr Reason for Referral Status Appt Date Jovita Cheng MD Sent [address] [place] [address] [phone] Nanda Brothers MD 30 DAY EVENT MONITOR Sent [address] [place] [address] [phone]
--- OUTSIDE RECORDS SUMMARY | 2019-09-20 14:35 | XMS REPORT | Summary of Care ---
:1985 Author Organization [facility] Address [address] [facility] [place] [address] Care Team Providers Name Role Phone Dalton Warner Primary Care Provider Reason for Visit Reason Comments Medication Check pt states 1 month f/u to medication increase. pt states things have not changed much in the past month Encounter Details Date Type Department Care Team Description 08/23/2019 Office Visit Cheney Chapis Chadwick, Moderate episode of recurrent major depressive disorder (HCC) (Primary Dx); Practice PA-C Insomnia, unspecified type [address] [place], [place] [address] [place] [address] [phone] Allergies Active Allergy Reactions Severity Noted Date Comments Ks Ibuprofen Other 03/01/2012 Latex Dermatologic Reaction 01/22/2009 Penicillins Hives, GI Reaction 01/22/2009 Reglan Other 12/13/2017 Uncontrolled muscle spasms documented as of this encounter (statuses as of 08/23/2019) Medications Medication Sig Dispensed Refills Start End [...] TabIndications: BEDTIME. Arthralgia of left temporomandibular joint diphenoxylate-atropin TAKE 1 TABLET 40 Tab 1 [...] 4 Active Oral Cap mouth DAILY. 9 zolpidem (AMBIEN) 5 Take 1 Tab by 30 Tab 0 Active MG Oral mouth EVERY 9 TabIndications: BEDTIME Insomnia, unspecified NEEDED type (insomnia). Max Daily Amount: 5 mg. mupirocin (BACTROBAN) Apply inside 1 Tube 0 08/23/20 Discontinued 2 % Apply externally both nostrils 9 OintmentIndications: 2-3 times Nostril sore daily for 7 days zolpidem (AMBIEN) 5 TAKE 1 TABLET 30 Tab 3 08/23/20 Discontinued MG Oral BY MOUTH AT 19 (Reorder) TabIndications: BEDTIME Insomnia, unspecified NEEDED FOR type SLEEP cyclobenzaprine Take 1 Tab by 30 Tab 5 08/23/20 Discontinued (FLEXERIL) 10 MG Oral mouth EVERY 9 19 Tab BEDTIME. diclofenac (VOLTAREN) Take 1 Tab by 30 Tab 5 08/23/20 Discontinued 50 MG Oral Tab EC mouth THREE 9 19 TIMES DAILY BEFORE MEALS. documented as of this encounter (statuses as of 08/23/2019) Active Problems Problem Noted Date Irritable bowel syndrome with diarrhea 08/29/2018 Menorrhagia with irregular cycle 05/26/2017 Major depression, recurrent 10/09/2014 Overview: Selective serotonin receptor inhibitor treatment No therapy Crohn's disease Overview: Dr Aj in past. Now seeing Dr. Bowling Eczema documented as of this encounter (statuses as of 08/23/2019) Resolved Problems Problem Noted Date Resolved Date Current smoker 10/22/2014 02/23/2018 Abdominal pain, unspecified site 09/25/2014 11/05/2014 Prophylactic vaccination against hemophilus influenza type B 06/21/201211/05 (Hib) Back pain 11/05/2014 documented as of this encounter (statuses as of 08/23/2019) Immunizations Name Administration Dates Next Due Influenza [...] Sign Reading Time Taken Comments Blood Pressure 92/78 08/23/2019 11:30 AM EST Pulse 108 08/23/2019 11:30 AM EST Temperature 37.1 08/23/2019 11:30 AM EST C (98.8 F) Respiratory Rate - - Oxygen Saturation 98% 08/23/2019 11:30 AM EST Inhaled Oxygen Concentration - - Weight 55.8 kg (123 lb) 08/23/2019 11:30 AM EST Height 160 cm (5' 3") 08/23/2019 11:30 AM EST Body Mass Index 21.79 08/23/2019 11:30 AM EST documented in this encounter Patient Instructions Patient InstructionsDoChapis turcios PA-C - 08/23/2019 11:40 AM EST1. Doing better, continue with current dose of fluoxetine Continue looking for therapist Healthy diet, keep well hydrated, no alcohol 2. Escribed refill of Ambien 5mg #30 documented in this encounter Progress Notes Chapis Biswas PA-C - 08/23/2019 11:40 AM EST PATIENT: Minnie Cruz : 1985 DATE OF SERVICE: 08/23/2019 REFERRING PRACTITIONER: Dalton Warner PRIMARY CARE PROVIDER: Dalton Warner CHIEF COMPLAINT: Chief Complaint Patient presents with Medication Check pt states 1 month f/u to medication increase. pt states things have not changed much in the past month Subjective HISTORY OF PRESENT ILLNESS: Minnie Cruz is a 33-y.o. female who presents for 1 month follow up Was seem by Dr. Warner 07/26 for ER follow up Had chest pains, cardiac workup was negative, diagnosed with depression and panic attack Dr. Warner increased fluoxetine to 40mg daily due to depression and panic attacks Today feeling alittle better Looking for therapist, insurance just kicked in No suicidal thoughts Eating and drinking OK, back to cooking dinner etoh -- not much Had echo this morning Saw rheum last week -- Dr. Reynoso Sees neuro later today Stopped smoking 1 yr Moving bowels and urinating without problem LMP: last week, regular, normal Sleep study done at [facility], waiting for sleep specialist appointment, does have sleep apnea Asking for ambien refill -- has insomnia -- ambien gives good relief Denies fever, chills, nausea, vomiting, diarrhea, chest pains, SOB Past Medical History: Diagnosis Date Back pain Crohn's disease (HCC) Dr Aj Eczema Irritable bowel syndrome with diarrhea 08/29/2018 Migraine Past Surgical History: Procedure Laterality Date BILAT TUBAL CRUSHING NEC COLONOSCOPY N/A 02/23/2018 Procedure: COLONOSCOPY; Surgeon: Fadi Conde MD; Location: [facility] GI OR WA LIGATE FALLOPIAN TUBE Family History Problem Relation Age of Onset [...] Take 1 Tab by mouth EVERY BEDTIME. diphenoxylate-atropine (LOMOTIL) 2.5-0.025 MG Oral Tab TAKE 1 TABLET BY MOUTH 4 TIMES A DAY NEEDED FOR DIARRHEA Fluoxetine HCl 40 MG Oral Cap Take 1 Cap by mouth DAILY. Menthol, Topical Analgesic, (ICY HOT EX) by Apply externally route. 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 Positive Crohns Genitourinary: negative burning on urination, dysuria or vaginal discharge Musculoskeletal: positive arthritis/joint pain Neurologic: positive migraine Psychiatric: positive depression and anxiety Hematologic/Lymphatic/Immunologic: negative allergies Endocrine: negative diabetes or hot flashes/sweats Objective PHYSICAL EXAMINATION: VITALS: BP 92/78 (BP Location: Left arm, Patient Position: Sitting) | Pulse 108 | Temp 98.8 F(37.1 C) | Ht 5' 3" (1.6 m) | Wt 123 lb (55.8 kg) | SpO2 98% | BMI 21.79 kg/m Body massindex is 21.79 kg/m. General appearance - alert, no distress, cooperative, oriented times 3 Skin - Skin color, texture, turgor normal. No rashes or lesions. Head - Normocephalic. No masses, lesions, tenderness or abnormalities Eyes - conjunctivae/corneas clear. PERRL, EOM's intact. Oropharynx - Lips, mucosa, and tongue normal. Teeth and gums normal. Oropharynx normal. Neck - Neck supple, FROM. No cervical or supraclavicular adenopathy. Thyroid normal, no enlargement Lungs - Good diaphragmatic excursion. Lungs clear. Chest symmetrical. Normal breath sounds. Heart - RRR. No murmurs, clicks or gallops. No peripheral edema. . IMPRESSION: ICD-9-CM ICD-10-CM 1. Moderate episode of recurrent major depressive disorder (HCC) 296.32 F33.1 2. Insomnia, unspecified type 780.52 G47.00 zolpidem (AMBIEN) 5 MG Oral Tab Plan PLAN: 1. Doing better, continue with current dose of fluoxetine Continue looking for therapist Healthy diet, keep well hydrated, no alcohol 2. Escribed refill of Ambien 5mg #30 Author: Chapis Biswas PA-C 08/23/2019 11:39 documented in this encounter Plan of Treatment Date Type Specialty Care Team Description 08/27/2019 Appointment Infusion Therapy 10/22/2019 Appointment Infusion Therapy Health Maintenance Due [...] filedocumented in this encounter Visit Diagnoses Diagnosis Moderate episode of recurrent major depressive disorder (HCC) - Primary Insomnia, unspecified type documented in this encounter Insurance Payer Benefit Plan / Subscriber ID Effective Dates Phone Address Type Group [facility] xxxxxxxxxxx 2019-Present Sinan documented as of this encounter
--- OUTSIDE RECORDS SUMMARY | 2019-09-20 14:35 | XMS REPORT | Continuity of Care Document ---
:1985 External Reference #:[id number] Author Name Alex Reynsoo M.D. (transmitted by agent of provider Shirlene Veronica) Address [address] [place] [address] Care Team Providers Name Role Phone Nancy Kaur MD - Internal Care Team Information [employer] [phone] Medicine Dalton Warner MD - Internal Care Team Information [employer] [phone] Medicine Problems Active Problems Provider Date Gastroesophageal [...] (10 or fewer cigarettes/day) Smoking Status Reviewed: 08/13/19 Light tobacco smoker (10 or fewer cigarettes/day) Allergies, Adverse Reactions, Alerts Active Allergies Reaction Severity Comments Date Penicillin hives 06/24/2010 Latex 06/24/2010 Ibuprofen 12/21/2010 Reglan uncontrollable muscle spasms 10/19/2018 Medications Active Medications SIG Qnty Indications Ordering Provider Date Topiramate take 1 tablet 270Tablet Johnathanzaid Rashaun, 06/18/2019 50mg by mouth in the M.D. Tablets morning and 2 tablets in the evening Combivent Inhaler 2puffs qid prn 1units 493.90 Roldan Murrieta, 2010 M.D. Prozac one twice daily Unknown 10mg Capsules Nizatidine take one Unknown 150mg capsule by Capsules mouth twice a day Triamcinolone apply thin film Unknown Acetonide twice daily 0.1% Cream Ondansetron dissolve one Unknown 4mg tablet orally Tablets Dispers every 8 hours as needed for nausea. 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 06/17/2019 Tablets Medications Administered in Office Medication SIG Qnty Indications Ordering Provider Date Depomedrol 40MG Andrzej Wen M.D. 11/16/2010 Injection Immunizations CPT Code Status Date Vaccine Lot # [id number] Given 08/19/2010 Influenza Virus 3Yrs & Over [id number] Vital Signs Date Vital Result Comment 08/13/2019 11:20am Height 63 inches 5'3" Weight 124.00 lb Heart Rate 89 /min BP Systolic Sitting 95 mmHg BP Diastolic Sitting 65 mmHg Respiratory Rate 16 /min Body Temperature 99.2 F Pain Level 5 O2 % BldC Oximetry 98 % BMI (Body Mass Index) 22.0 kg/m2 05/21/2019 8:03am Height 63 inches 5'3" Weight 120.00 lb Heart Rate 67 /min BP Systolic 106 mmHg BP Diastolic 62 mmHg BMI (Body Mass Index) 21.3 kg/m2 Results Description No Information Available Procedures Date Code Description Status 08/01/2019 04886 Polysomnography Sleep Staging 4+ Parameters Completed 04/19/2019 02245 Event Monitor/Phys Review/Interp. Completed 04/18/2019 73915 EEG Recording Awake & Asleep Completed 05/27/2011 60886262 Colonoscopy Completed Medical Devices Description No Information Available Encounters Type Date Location Provider Dx Diagnosis Office Visit 05/21/2019 [place] [facility] Donn Antonio, M54.2 Cervicalgia 8:00a [facility] G43.009 Migraine w/o aura, not intractable, w/o status migrainosus R53.83 Other fatigue Office Visit 04/09/2019 [place] Walt G43.019 Migraine w/o 3:45p Neurologic Micah Rodney aura, [facility] intractable, without status migrainosus R55 Syncope and collapse Assessments Date Code Description Provider 08/13/2019 M35.01 Sicca syndrome with keratoconjunctivitis Alex Reynoso M.D. 08/13/2019 M54.5 Low back pain Alex Reynoso M.D. 08/13/2019 M54.6 Pain in thoracic spine Alex Reynoso M.D. 08/13/2019 J98.4 Other disorders of lung Alex Reynoso M.D. 08/13/2019 R20.8 Other disturbances of skin sensation Alex Reynoso M.D. 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 Plan of Treatment Future Appointment(s):09/07/2019 12:00 pm - Alex Reynoso M.D. at [facility]08/23/2019 8:30 am - Donn Antonio N.P. at [place] [facility]08/13/2019 - Alex Reynoso M.D.M35.01 Sicca syndrome with keratoconjunctivitisFollow up:Follow up in 3 weeks or sooner if lnoatsK51.5 Low back painM54.6 Pain in thoracic zltozT33.4 Other disorders of lungNew Orders: Echocardiogram, Ordered: 08/13/19R20.8 Other disturbances of skin qkaeovcwlB63.52 [facility] (current) use of systemic steroids Functional Status Description No Information Available Mental Status Description No Information Available Referrals Refer to Reason for Referral Status Appt Date Jovita Cheng MD Sent [address] [place] [address] [phone] Nanda Brothers MD 30 DAY EVENT MONITOR Sent [address] [place] [address] [phone]
--- OUTSIDE RECORDS SUMMARY | 2019-09-20 14:35 | XMS REPORT | Continuity of Care Document ---
:1985 External Reference #:[id number] Author Name Donn Antonio N.P. Address [address] [facility], [place] [address] Care Team Providers Name Role Phone Nancy Kaur MD - Internal Care Team Information [facility] [phone] Medicine Dalton Warner MD - Internal Care Team Information [facility] [phone] Medicine Problems Active Problems Provider Date Gastroesophageal [...] Johnathanzaid Rashaun, 06/18/2019 50mg by mouth in M.D. Tablets [...] Topiramate take 1 in am 270tabs G43.019 Donntiffanie Antonio, 04/09/2019 - 50mg and 2 in pm N.P. 06/17/2019 Tablets Medications Administered in Office Medication SIG Qnty Indications Ordering Provider Date Depomedrol 40MG Andrzej Wen M.D. 11/16/2010 Injection Immunizations CPT Code Status Date Vaccine Lot # [id number] Given 08/19/2010 Influenza Virus 3Yrs & Over [id number] Vital Signs Date Vital Result Comment 09/07/2019 [...] Result H/L Range Note Date Laboratory 08/14/2019 [facility] Thyroperoxidase AB 0.20 IU/mL Normal <9 1 test finding [address] [place], [place] [id number] [phone] T3 Free 2.80 pg/mL Normal 2.5-3.9 2 Cardiolipin 08/14/2019 [facility] Phospholipid Ab < 9.4 MPL 3 Igg/Igm IgM, [place], [place] [address] [phone] Phospholipid Ab IgG < 9.4 GPL 4 Protein 08/14/2019 [facility] Total 7.4 g/dL 6.3 - Electrophoresis [facility] Protein(Pep) 7.9 [place], [place] [address] [phone] Albumin 3.7 g/dL 3.4-4.7 Alpha-1 Globulin 0.2 g/dL 0.1-0.3 Alpha-2 Globulin 1.1 g/dL Abnormal 0.6-1.0 Beta Globulin 1.1 g/dL 0.7-1.2 Gamma Globulin 1.3 g/dL 0.6-1.6 Albumin/Globulin Ratio 1.01 Impression See Comment 5 Laboratory test 08/14/2019 [facility] Vitamin D 27.8 ng/mL Normal 20-50 6 finding [facility] Total [address](Oh) [place] [address] [phone] Vitamin B12 And 08/14/2019 [facility] Vitamin B12 373 pg/mL Normal 180-914 7 [place] [address] [phone] Folic Acid (Folate) 5.69 ng/mL >3.99 8 Hla B27 08/14/2019 [facility] Hla B27 Positive [address] [place], [place] [id number] [phone] Hla B27 Interp See Comment 10 Laboratory test 08/14/2019 [facility] Angiotensin 25 U/L 16 - 85 11 [place] [address] Enzyme [phone] Anca AB Ser If 08/14/2019 [facility] C-Anca Negative Negative DRIVE [place], [place] [address] [phone] P-Anca Positive Abnormal Negative 12 Laboratory test 08/14/2019 [facility] Anti Nuclear 1.0 U 13 finding Antibody [place], [place] 06[address] [phone] Ssa/SSB Abs Igg 08/14/2019 [facility] SS-A/Ro Antibody <0.2 U 14 [address] [place] [address] [phone] SS-B/La Antibody <0.2 U 15 Laboratory test 08/14/2019 [facility] C Reactive 1.51 mg/L Normal <8.01 16 finding [address] [facility] [place] [address] [phone] Cyclic Citrullinated Pep Igg <15.6 U 17 Creatine Kinase(CK) 50 U/L Normal 10-223 18 1 Please check labs and xrays and echo this week 2 Please check labs and xrays and echo this week 3 REFERENCE VALUE <15.0 (Negative) 4 REFERENCE VALUE <15.0 (Negative) Test Performed by: [facility] [place] [address] Mathematical Technician: Anant Cordero M.D. Ph.D.; CLIA# [id number] 5 RESULT: No apparent monoclonal protein on serum electrophoresis. Test Performed by: [facility] [place] [address] Mathematical Technician: Anant Cordero M.D. Ph.D.; CLIA# [id number] 6 Total 25-Hydroxyvitamin D2 and D3 (25-OH-VitD) [...] INFORMATION Method: Flow Cytometry Test Performed by: [place] [address] Mathematical Technician: Anant Cordero M.D. Ph.D.; CLIA# [id number] 11 Test Performed by: [place] [address] Mathematical Technician: Anant Cordero M.D. Ph.D.; CLIA# [id number] 12 Positive for pANCA pattern by immunofluorescence. Suggest further testing for anti-myeloperoxidase (anti-MPO) antibodies, if clinically indicated. ADDITIONAL INFORMATION This test was developed and its performance characteristics determined by [facility] in a manner consistent with CLIA requirements. This test has not been cleared or approved by the U.S. Food and Drug Administration. Test Performed by: [facility] [place] [address] Mathematical Technician: Anant Cordero M.D. Ph.D.; CLIA# [id number] 13 REFERENCE VALUE <=1.0 (Negative) Test Performed by: [place] [address] Mathematical Technician: Anant Cordero M.D. Ph.D.; CLIA# [id number] 14 REFERENCE VALUE <1.0 (Negative) 15 REFERENCE VALUE <1.0 (Negative) Test Performed by: [place] [address] Mathematical Technician: Anant Cordero M.D. Ph.D.; CLIA# [id number] 16 Please check labs and xrays and echo this week 17 REFERENCE VALUE <20.0 (Negative) Test Performed by: [place] [address] Mathematical Technician: Anant Cordero M.D. Ph.D.; CLIA# [id number] 18 Please check labs and xrays and echo this week Procedures Date Code Description Status 08/23/2019 64248 ECHO Transthoracic, Real-Time 2D With Doppler And Color Completed Flow 08/23/2019 15073 ECHO Transthoracic, Real-Time 2D With Doppler And Color Completed Flow 08/01/2019 86016 Polysomnography Sleep Staging 4+ Parameters Completed 04/19/2019 89709 Event Monitor/Phys Review/Interp. Completed 04/18/2019 65447 EEG Recording Awake & Asleep Completed 05/27/2011 99969874 Colonoscopy Completed Medical Devices Description No Information Available Encounters Type Date Location Provider Dx Diagnosis Office Visit 09/07/2019 [facility] Alex Reynoso, M54.5 Low back pain 12:00p [facility] M54.6 Pain in thoracic spine R76.0 Raised antibody titer M79.10 Myalgia, unspecified site Office Visit 08/23/2019 Samara Pop G43.019 Migraine w/o aura, 2:30p Neurologic Paco N.P. intractable, [facility] without status migrainosus F17.210 Nicotine dependence, cigarettes, uncomplicated R56.9 Unspecified convulsions Office 08/13/2019 Rheumat[facility] Alex M35.01 Sicca syndrome with Visit 11:00a [facility] Dickson M.D. M54.5 Low back pain M54.6 Pain in thoracic spine J98.4 Other disorders of lung R20.8 Other disturbances of skin sensation Z79.52 nursing home (current) use of systemic steroids F17.210 Nicotine dependence, cigarettes, uncomplicated Office Visit 05/21/2019 8:00a [place] [facility] Donn Antonio, M54.2 Cervicalgia [facility] G43.009 Migraine w/o aura, not intractable, w/o status migrainosus R53.83 Other fatigue Office Visit 04/09/2019 [place] Walt G43.019 Migraine w/o 3:45p Neurologic Micah Rodney aura, [facility] intractable, without status migrainosus R55 Syncope and [...] skin sensation Alex Reynoso M.D. 08/13/2019 Z79.52 nursing home (current) use of systemic Alex Reynoso M.D. [...] Future Appointment(s):10/08/2019 3:30 pm - Donn Antonio N.P. at [place] [facility]09/07/2019 - Alex Reynoso M.D.M54.5 Low back painM54.6 Pain in thoracic xixjfI45.0 Raised antibody phcjlM21.10 Myalgia, unspecified siteReferral:Navya Hartley FNP-C, Family/PURCHASING ASSISTANT Functional Status Description No Information Available Mental Status Description No Information Available Referrals Refer to Reason for Referral Status Appt Date Navya Hartley FNP-C Please evaluate fatigue and myalgias, Sent 00/ history of chronic pain and inflammatory bowel disease; assess for eligibility of medical marijuana [address] [place] [address] [phone] Jovita Cheng MD Sent [address] [place] [address] [phone] Nanda Brothers MD 30 DAY EVENT MONITOR Sent [address] [place] [address] [phone]
== END 2019-09-20 15:15 | disposition left against medical advice (07) ==
LOC: ED 13:39
DX: Z53.21 Procedure and treatment not carried out due to patient leaving prior to being seen by health care provider (principal)
CPT/HCPCS: 99282

== ENCOUNTER 2022-10-12 11:58 | Inpatient (IN) ==
[2022-10-12 15:02] LABS: ABS Basophils 0.1 10^3/ul (0-0.2); ABS Eosinophils 0.5 10^3/ul (0-0.6); ABS Monocytes 0.5 10^3/ul (0-0.8); ABS Neutrophils 8.3 10^3/ul (1.5-7.7); Eosinophil % 4.3 %; Hematocrit 44 % (35-47); Hemoglobin 14.4 g/dL (12.0-16.0); Lymphocyte % 17.3 %; Mean Corpuscular HGB Conc 33 g/dL (31-36); Mean Corpuscular Hemoglobin 30 pg (27-31); Mean Corpuscular Volume 90 fL (80-97); Nucleated Red Blood Cells % 0.1; Platelet Count 436 10^3/uL (150-450); Red Cell Distribution Width 14 % (10-15); White Blood Count 11.4 10^3/uL (3.5-10.8)
[2022-10-12 16:10] LABS: Albumin 4.2 g/dL (3.2-5.2); Anion Gap 7 mmol/L (2-11); CO2 Carbon Dioxide 24 mmol/L (22-32); Calcium 9.4 mg/dL (8.6-10.3); Chloride 106 mmol/L (101-111); Potassium 4.8 mmol/L (3.5-5.0); Sodium 137 mmol/L (135-145)
[2022-10-12 16:12] LABS: HCG Pregnancy < 0.60 mIU/mL
[2022-10-12 16:16] LABS: ALT 22 U/L (7-52); AST 20 U/L (13-39); Acetaminophen < 15 mcg/mL; Albumin/Globulin Ratio 1.4 (1-3); Alcohol, S < 13 mg/dL (<13); Alkaline Phosphatase 45 U/L (35-149); Blood Urea Nitrogen 10 mg/dL (6-24); Glucose 83 mg/dL (70-100); Salicylate < 2.50 mg/dL (<30); Total Protein 7.2 g/dL (6.4-8.9); eGFR CKD-EPI 110.6 (>60)
[2022-10-12 16:21] LABS: TSH Ultra Thyroid Stim Horm 0.59 mcIU/mL (0.34-5.60)
[2022-10-12 17:04] LABS: Urine Appearance Cloudy; Urine Bilirubin Negative (Negative); Urine Blood 3+ (Negative); Urine Color Yellow; Urine Glucose Negative (Negative); Urine Ketones Negative (Negative); Urine Nitrite Positive (Negative); Urine Protein Negative (Negative); Urine Specific Gravity 1.019 (1.002-1.030); Urine Urobilinogen Negative (Negative)
[2022-10-12 17:31] LABS: Urine Benzodiazepine Screen None Detected (None Detect); Urine Cannabinoids Screen Presumptive Positive (None Detect); Urine Opiates Screen Presumptive Positive (None Detect)
[2022-10-12] MEDS ORDERED: oxyCODONE SR 10 mg TAB PO ONE (17:54)
[2022-10-12 18:00] LABS: Urine Bacteria 3+ (Absent); Urine Red Blood Cell 2+(6-10/hpf) (Absent); Urine Squamous Epithelial Cell Present (Absent); Urine White Blood Cell 2+(11-20/hpf) (Absent)
[2022-10-12] MEDS ORDERED: Al Hydrox/Mg Hydrox/Simet LIQ 30 ML UDC PO PRN (19:29)
[2022-10-12] MEDS ORDERED: Nicotine GUM 2MG FRUIT FLAVOR PO PRN (20:00)
[2022-10-12 22:19] LABS: Urine Buprenorphine Screen None Detected (None Detect); Urine Fentanyl Screen None Detected (None Detect); Urine Hydrocodone Screen None Detected (None Detect)
[2022-10-13 08:42] LABS: HDL Cholesterol 43.8 mg/dL
[2022-10-13] MEDS: Nicotine PATCH 21 MG/24 HR PATCH TRANSDERM SCH (08:50)
[2022-10-13] MEDS: Vitamin THERAPEUTIC TAB PO SCH (08:51)
[2022-10-13] MEDS: Morphine ER 15 mg TAB ** extended release PO PRN (20:01)
[2022-10-14] MEDS: oxyCODONE/Acetamin 5/325 mg TAB PO PRN (09:37)
[2022-10-14] MEDS: Nicotine PATCH 21 MG/24 HR PATCH TRANSDERM SCH (09:40)
[2022-10-14] MEDS: Vitamin THERAPEUTIC TAB PO SCH (09:40)
[2022-10-14] MEDS ORDERED: Sulfamethox/Trimethoprim DS TAB 800/160 mg PO SCH (14:00)
[2022-10-14] MEDS: Nitrofurantoin (monohydrate/macrocrystals) 100 mg CAP PO SCH (20:32)
[2022-10-15 08:20] VITALS: BP 112/71
[2022-10-15] MEDS: oxyCODONE/Acetamin 5/325 mg TAB PO PRN (08:39)
[2022-10-15] MEDS: Nitrofurantoin (monohydrate/macrocrystals) 100 mg CAP PO SCH (08:40)
[2022-10-15] MEDS: Vitamin THERAPEUTIC TAB PO SCH (09:29)
[2022-10-15] MEDS: Nicotine PATCH 21 MG/24 HR PATCH TRANSDERM SCH (09:29)
[2022-10-15] MEDS: Morphine ER 15 mg TAB ** extended release PO PRN (14:49)
== END 2022-10-15 17:20 | disposition home or self-care (01) | DRG 757 ==
LOC: ED 11:58 → BSU 18:31
PROVIDERS: ADMIT Psychiatry & Neurology Psychiatry; ATTEND Psychiatry & Neurology Psychiatry